=== PATIENT | female | born 1960 ===

== ENCOUNTER → 2022-08-05 14:18 | Outpatient (BNVA) | payer MEDICAID, SELFPAY | PROVIDERS: PCP Internal Medicine; Visit Provider Physician Assistant ==

== ENCOUNTER → 2022-08-26 11:09 | Outpatient (BNVA) | payer OTHER, SELFPAY | PROVIDERS: PCP Internal Medicine; Visit Provider Physician Assistant Surgical | DX: E66.01 Morbid (severe) obesity due to excess calories (principal); Z68.42 Body mass index [BMI] 45.0-49.9, adult | CPT/HCPCS: 99202 ==

== ENCOUNTER 2022-08-30 08:40 | Outpatient (REF) | payer OTHER, SELFPAY ==
--- NOTE | ~2022-08-30 | XR_ITS ---
EXAMINATION: XR CHEST CLINICAL INFORMATION: Obesity COMPARISON: None available. TECHNIQUE: 2 views of the chest were obtained. FINDINGS: No significant abnormality is noted involving the heart, lungs, mediastinum, bony thorax or soft tissues. Degenerative changes of the spine. XR/XR chest 2V IMPRESSION: Unremarkable examination.
--- NOTE | 2022-08-30 08:49 | ECG_ITS ---
Test Reason : E66.01 Morbid Obesity Blood Pressure : / mmHG Vent. Rate : 101 BPM Atrial Rate : 101 BPM P-R Int : 150 ms QRS Dur : 076 ms QT Int : 348 ms P-R-T Axes : 069 008 044 degrees QTc Int : 451 ms Sinus tachycardia Otherwise normal ECG No previous ECGs available Referred By: Maiklo Culp Electronically Signed By:BEHZAD LYONS MD
[2022-08-30 08:59] LABS: MANUAL DIFF FLAG NO
[2022-08-30 09:06] LABS: Basophils Percent Auto 0.5 % (0-2); Eosinophils Absolute Auto 0.1 X10*3/uL (0.0-0.4); Eosinophils Percent Auto 1.6 % (0-4); Hemoglobin 13.2 g/dl (12.0-16.0); Imm Gran Abs Auto 0.08 X10*3/uL (0.00-0.03); Lymphocytes Absolute Auto 1.4 X10*3/uL (1.2-4.9); Lymphocytes Percent Auto 18.2 % (20-40); Mean Corpuscular HGB Conc 32.2 g/dl (31.0-35.0); Mean Corpuscular Hemoglobin 30.7 pg (27.0-33.0); Mean Corpuscular Volume 95.3 fL (80.0-98.0); Mean Platelet Volume 10.5 fL (9.4-12.3); Monocytes Absolute Auto 0.5 X10*3/uL (0.1-1.2); Monocytes Percent Auto 6.2 % (2-11); Neutrophils Absolute Auto 5.6 x10*3/uL (2.0-8.3); Neutrophils Percent Auto 72.5 % (45-73); Platelet Count 273 X10*3/uL (160-400); Red Cell Distribution Width 12.6 % (11.0-16.0); White Blood Count 7.7 X10*3/uL (4.8-10.8)
[2022-08-30 09:15] LABS: Estimated Average Glucose 174 mg/dL; Hemoglobin A1c % 7.7 %
[2022-08-30 09:50] LABS: Alanine Aminotransferase 10 U/L (0-31); Alkaline Phosphatase 98 U/L (39-117); Anion Gap 16 (12-20); Aspartate Amino Transferase 12 U/L (5-31); Blood Urea Nitrogen 19 mg/dL (9-16); C Reactive Protein 2.23 mg/dL (< or = 0.50); Calcium 9.7 mg/dL (8.4-10.2); Carbon Dioxide 27 mmol/L (22-29); Chloride 102 mmol/L (96-108); Cholesterol 159 mg/dL; Estimated Glomerular Filt Rate 59; Glucose Random 220 mg/dL (60-115); HDL Cholesterol 72 mg/dL; Iron 61 mcg/dL (30-160); LDL Cholesterol Calculated 71 mg/dl; Percent Iron Saturation 24 % (15-50); Potassium 4.7 mmol/L (3.3-5.1); Sodium 140 mmol/L (135-145); Total Iron Binding Capacity 257 mcg/dL (228-428); Total Protein 7.6 g/dL (6.5-8.0); Triglycerides 81 mg/dL; Unsaturated Iron Binding 196 ug/dL
[2022-08-30 10:28] LABS: Ferritin 77 ng/mL (10-250); Folate 11.9 ng/mL (> or = 4.0); Vitamin B12 510 pg/mL (200-900)
[2022-08-30 10:50] LABS: Insulin 5 uU/mL (2-29)
[2022-08-31 16:13] LABS: Calcium (PTHI) 9.8 mg/dL (8.6-10.4); PTHI 50 pg/mL (16-77)
[2022-09-03 17:48] LABS: Zinc 81 mcg/dL (60-130)
[2022-09-04 09:44] LABS: Vitamin B1 <6 nmol/L (8-30)
[2022-09-06 17:48] LABS: Vitamin A 32 mcg/dL (38-98)
== END 2022-08-30 08:41 | disposition home or self-care (01) ==
LOC: HO.XRAY 08:40
PROVIDERS: Visit Provider Physician Assistant Surgical
DX: E66.01 Morbid (severe) obesity due to excess calories (principal); E11.9 Type 2 diabetes mellitus without complications; E78.00 Pure hypercholesterolemia, unspecified; I10 Essential (primary) hypertension
CPT/HCPCS: 36415; 71046; 80053; 80061; 82306; 82607; 82728; 82746; 83036; 83525; 83540; 83970; 84425; 84443; 84590; 84630; 85025; 86140; 93005

== ENCOUNTER → 2022-09-14 11:22 | Outpatient (BNVA) | payer OTHER, SELFPAY | PROVIDERS: PCP Internal Medicine; Visit Provider Physician Assistant Surgical | DX: E66.01 Morbid (severe) obesity due to excess calories (principal); Z11.0 Encounter for screening for intestinal infectious diseases; R09.02 Hypoxemia; Z68.41 Body mass index [BMI] 40.0-44.9, adult | CPT/HCPCS: 99211; 99212 ==

== ENCOUNTER 2022-09-14 18:15 | Outpatient (REF) | payer OTHER, SELFPAY ==
[2022-09-15 14:55] LABS: H Pylori Breath Test Negative (Negative)
== END 2022-09-14 18:16 | disposition home or self-care (01) ==
LOC: HO.LNP 18:15
PROVIDERS: Visit Provider Physician Assistant Surgical
DX: E66.01 Morbid (severe) obesity due to excess calories (principal); E11.9 Type 2 diabetes mellitus without complications; E78.00 Pure hypercholesterolemia, unspecified; I10 Essential (primary) hypertension
CPT/HCPCS: 83013

== ENCOUNTER → 2022-09-21 11:44 | Outpatient (BNVA) | payer OTHER, SELFPAY | PROVIDERS: PCP Internal Medicine; Visit Provider Dietitian, Registered | DX: E66.01 Morbid (severe) obesity due to excess calories (principal); Z68.41 Body mass index [BMI] 40.0-44.9, adult; Z71.3 Dietary counseling and surveillance | CPT/HCPCS: 97802 ==

== ENCOUNTER → 2022-10-05 09:42 | Outpatient (BNVA) | payer OTHER, SELFPAY | PROVIDERS: PCP Internal Medicine; Visit Provider Physician Assistant Surgical | DX: E66.01 Morbid (severe) obesity due to excess calories (principal); Z68.41 Body mass index [BMI] 40.0-44.9, adult | CPT/HCPCS: 99212 ==

== ENCOUNTER → 2022-10-07 12:25 | Outpatient (BNVA) | payer OTHER, SELFPAY | PROVIDERS: PCP Internal Medicine; Visit Provider Counselor Mental Health ==

== ENCOUNTER 2022-10-25 06:39 | Outpatient (REF) | payer OTHER, SELFPAY ==
--- NOTE | ~2022-10-25 | US_ITS ---
EXAMINATION: US COMPLETE ABDOMEN WITH LIVER ELASTOGRAPHY CLINICAL INFORMATION: Obesity. COMPARISON: None available. TECHNIQUE: Real-time imaging of the abdominal viscera. Noninvasive ultrasound liver fibrosis assessment is performed using Katlyn ElastPQ point quantification shear wave elastography (2D-SWE) with a C5-2 MHz transducer. Multiple elastography samples are obtained. FINDINGS: PANCREAS: Normal. The visualized pancreatic head and body are normal in appearance. The remainder of the pancreas is obscured from visualization by the overlying bowel gas. ABDOMINAL AORTA: The proximal, middle, and distal aortic segments are normal in caliber. INFERIOR VENA CAVA: Visualized portions are normal. LIVER: Normal. The liver demonstrates normal size, contour and echogenicity. No focal lesion or intrahepatic biliary duct dilatation. The right lobe measures 19.2 cm in length. The left lobe measures 13.7 cm in length. Portal flow is towards the liver (hepatopetal). Shear wave liver elastography median stiffness is 1.35 m/s (reference: normal median stiffness is 1.3 m/s or less). IQR/median stiffness to assess sampling precision is 0.15 (reference: good quality data set is IQR/median stiffness of 0.15 or less). GALLBLADDER: Normal. The gallbladder is physiologically distended without evidence of stones, sludge, polyps, wall thickening or pericholecystic fluid. COMMON BILE DUCT: Normal in caliber measuring 0.2 cm in diameter. RIGHT KIDNEY: Normal. No hydronephrosis. No renal calculi or focal parenchymal lesions. The kidney measures 12.1 cm in maximum dimension. LEFT KIDNEY: Normal. No hydronephrosis. No renal calculi or focal parenchymal lesions. The kidney measures 12.6 cm in maximum dimension. SPLEEN: Normal. The spleen measures 10.6 cm in maximum dimension. FREE FLUID: None. US/US abdomen comp w elastography IMPRESSION: Liver elastography: In the absence of other known clinical signs, measurements rule out compensated advanced chronic liver disease. If there are known clinical signs, further testing may be needed for confirmation. REFERENCE: Society of Radiologists in Ultrasound Liver Stiffness Thresholds (2020): LIVER STIFFNESS THRESHOLDS: *Liver Stiffness equal or less than 1.3 m/s: High probability of being normal. *Liver Stiffness less than 1.7 m/s: In the absence of other known clinical signs, rules out compensated advanced chronic liver disease. *Liver Stiffness 1.7-2.1 m/s: Suggestive of compensated advanced chronic liver disease but need further test for confirmation. *Liver Stiffness over 2.1 m/s: Rules in compensated advanced chronic liver disease. *Liver Stiffness over 2.4 m/s: Suggestive of clinically significant portal hypertension. QUALITY OF DATA SET: *IQR/Median value equal or less than 0.15 implies a quality data set. *IQR/Median value over 0.15 implies a poor quality data set. SIGNIFICANT CHANGE FROM PRIOR EXAM: Significant change if liver stiffness measurement is 10% or greater from prior exam. OTHER CONSIDERATIONS: The stage of liver fibrosis may be overestimated in the setting of acute hepatitis, liver inflammation, elevated liver function tests, hepatic vascular congestion, obstructive cholestasis, non-fasting state, and infiltrative diseases such as amyloidosis and lymphoma. In some patients with NAFLD, the liver stiffness thresholds for compensated advanced chronic liver disease may be lower. In causes other than viral hepatitis and NAFLD, liver stiffness thresholds are not well established.
--- NOTE | ~2022-10-25 | FL_ITS ---
PROCEDURE: XR FLUOROSCOPY UPPER GI WITH AIR CLINICAL INFORMATION: Morbid/severe obesity. COMPARISON: None available. TECHNIQUE: Routine upper GI air-contrast study was performed in upright and lying position. FINDINGS: Following oral administration of thick barium and effervescent granules there is normal propagation of bolus from the oral cavity through the pharynx, esophagus into stomach without any evidence of obstruction, narrowing or stricture. On placing patient supine and prone lying there is mild gastroesophageal reflux without hiatal hernia. The course, caliber and peristalsis of stomach, duodenal bulb and the sweep is normal. FLUOROSCOPY TIME: 1.5 minutes DOSE AREA PRODUCT: 35.047 uGy-m2 (microgray-meter squared) FL/FL upper GI w air IMPRESSION: Mild gastroesophageal reflux without hiatal hernia. Otherwise unremarkable upper GI air-contrast study.
== END 2022-10-25 06:40 | disposition home or self-care (01) ==
LOC: HO.US 06:39
PROVIDERS: PCP Internal Medicine; Visit Provider Physician Assistant Surgical
DX: E66.01 Morbid (severe) obesity due to excess calories (principal); E11.9 Type 2 diabetes mellitus without complications; E78.00 Pure hypercholesterolemia, unspecified; I10 Essential (primary) hypertension
CPT/HCPCS: 74246; 76705; 76981

== ENCOUNTER 2022-12-02 13:18 | Outpatient (AMB) | payer OTHER, SELFPAY ==
--- NOTE | 2022-12-02 13:30 | MHC.OFFVISWM ---
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 Required: No Allergies Sulfa (Sulfonamide Antibiotics) Allergy (Mild, Verified 12/02/22 13:34) Hives Medication List - Last Reconciled 12/02/22 by MELVI Aldana acetaminophen 650 mg PO TID PRN albuterol sulfate 90 mcg/actuation (Ventolin HFA) 2 puffs inhalation QID amitriptyline 25 mg PO BEDTIME aripiprazole 2 mg PO DAILY btgcrpcqu-rqftwwuz-smyhclh ala 30-120-15 mg (Biktarvy) tabs PO budesonide-formoterol 160-4.5 mcg/actuation (Symbicort) 2 puffs inhalation BID cholecalciferol (vitamin D3) 125 mcg PO DAILY dapagliflozin propanediol 10 mg PO DAILY dulaglutide (Trulicity) 1.5 mg subcut QWEEK dulaglutide (Trulicity) mg subcut duloxetine 60 mg PO DAILY fexofenadine 60 mg PO DAILY flash glucose scanning reader (FreeStyle Juanjose 2 [place]) As directed flash glucose sensor (FreeStyle Juanjose 2 Sensor kit) As directed fluticasone propionate 50 mcg/actuation (Flonase Allergy Relief) 2 sprays intranasal DAILY gabapentin 300 mg PO TID insulin glargine (Lantus Solostar U-100 Insulin) 25 units subcut QAM insulin lispro (Humalog KwikPen (U-100) Insulin) 1 sliding scale dose subcut USEASDIRECTD lidocaine 5% 1 appl topical TID PRN metformin 500 mg PO BID metoprolol succinate ER 100 mg PO DAILY oxybutynin chloride ER 15 mg PO DAILY pravastatin 20 mg PO DAILY prazosin 5 mg PO BEDTIME thiamine HCl (vitamin B1) 100 mg PO DAILY 90 days trazodone 50 mg PO BEDTIME PRN valsartan 160 mg PO DAILY vitamin A palmitate 3,000 mcg PO DAILY 90 days HPI HPI Comments History of Present Illness Details The patient is a pleasant 62 year old female who returns to the clinic for pre-operative surgical weight loss management. They were last seen in the office on 10/05/22, recorded weight at that time was 242.6 pounds, with a BMI of 43. Today's weight is 245 pounds and BMI is 43.4. There has been a weight loss of 17.4 pounds since initiating the surgical weight loss program on 08/26/22 with a total body weight loss of 6.6 %. Pre op work up completed as follows: SWL classes:? 08/06 BH appts: cleared-10/07/22 ? ? RD appts: cleared-09/21/22 Labs: 08/30/22-low A,D,B1, HgbA1c:7.7 H. pylori: 09/14/22 CXR: 08/30/22-nad EK08/30/22-sinus tachycardia ABD U/S: 10/25/22-fatty liver UGI: 10/25/22-mild GERD The patient reports she had the loss of her brother and during 9 days of prayers, food is part of the culture and she tried to do her best but ultimately ate things off the meal plan. Restarted the meal plan this week. Current meal plan includes: 3 Orgain shakes ([employer], [employer], [employer]) First shake (2 scoops in 8 oz low fat unsweetened almond milk, may add ice if you wish) at 7am-9am Second shake (1 scoops in 8 oz low fat unsweetened almond milk, may add ice if you wish) at 10am-12pm meal at 12pm (8 forks of protein and 8 forks of salad/vegetables). 1 protein bar (Zone Macro bars at [employer], [employer], or [employer], [employer]) at 2pm-4pm. Another shake with 1 scoop in 8 oz unsweetened almond milk at 7pm-9pm. Drinking 64-80 oz of water Current exercise plan includes: weight loss videos at home, 3 x per week, walking 4 days per week on the [place] in the park, not tracking calories, states she walks for 3 x around the track and no longer has to stop 3/[address] [facility] Surgical History Hx of appendectomy Hx of cataract surgery Hx of tonsillectomy Hx of tracheostomy Family History Mother Diabetes Father No problems noted. Brother No problems noted. Brother No problems noted. Sister Thyroid disease Sister Heart disease Sister No problems noted. Sister No problems noted. Sister No problems noted. Daughter No problems noted. Daughter No problems noted. Daughter No problems noted. Son Thyroid disease Son No problems noted. Son No problems noted. Social History Alcohol intake: never Patient Tobacco Use Status: Never used Tobacco Physical Exam Vital Signs: Last Vital Signs Temp 97.6 F 12/02/22 13:37 Pulse 96 12/02/22 13:37 BP 134/66 12/02/22 13:37 Pulse Ox 96 12/02/22 13:37 Oxygen Delivery Method Room Air 12/02/22 13:37 BMI result Body Mass Index 43.4 Const General: healthy appearing and no acute distress Resp Effort & Inspection: normal respiratory effort Auscultation: clear to auscultation bilaterally Cardio Rate: regular rate Rhythm: regular rhythm GI Auscultation: normal bowel sounds Extrem General: Yes normal to inspection Assessment & Plan Assessment & Plan (1) Morbid obesity: Code(s): E66.01 - Morbid (severe) obesity due to excess calories Plan: Due to in the family and 9 days of prayers and food, off track, now back on track and able to recount meal plan perfectly Encouraged to increase exercise as much as she can and to improve by 2-5 minutes daily RTC w Dr Royal 5 weeks. Coding Level of Care Code Est Pt Level 3 (42884) Diagnoses Morbid obesity E66.01
[2022-12-02 13:37] VITALS: BP 134/66; PULSE 96; TEMP 36.4; O2SAT 96; BMI 43.4
== END 2022-12-02 14:14 | disposition home or self-care (01) ==
PROVIDERS: PCP Internal Medicine; Visit Provider Physician Assistant Surgical
DX: E66.01 Morbid (severe) obesity due to excess calories (principal); Z68.41 Body mass index [BMI] 40.0-44.9, adult
CPT/HCPCS: 99213

== ENCOUNTER → 2022-12-02 13:18 | Outpatient (BNVA) | payer OTHER, SELFPAY | PROVIDERS: PCP Internal Medicine; Visit Provider Physician Assistant Surgical | DX: E66.01 Morbid (severe) obesity due to excess calories (principal); Z68.41 Body mass index [BMI] 40.0-44.9, adult | CPT/HCPCS: 99212 ==

== ENCOUNTER → 2023-06-30 13:02 | Outpatient (BNVA) | payer OTHER, SELFPAY | PROVIDERS: PCP Internal Medicine; Visit Provider Physician Assistant Surgical ==

== ENCOUNTER 2023-07-04 11:00 | Outpatient (AMB) | payer OTHER, SELFPAY ==
--- NOTE | 2023-07-04 11:21 | A.OFFVIS_ITS ---
Intake VS Expanded 07/04/23 11:56 Height 5 ft 3 in Weight 245 lb BMI 43.4 Intake Visit Reasons: TV Re-Est SWL BMI 43.5 *SEE COMMENTS* Allergies Sulfa (Sulfonamide Antibiotics) Allergy (Mild, Verified 07/04/23 11:21) Hives Medication List - Last Reconciled 07/04/23 by Moses Carrasco MD acetaminophen 650 mg PO TID PRN albuterol sulfate 90 mcg/actuation (Ventolin HFA) 2 puffs inhalation QID amitriptyline 25 mg PO BEDTIME aripiprazole 2 mg PO DAILY pymvapuel-vmvwavpp-egzddwd ala 30-120-15 mg (Biktarvy) tabs PO budesonide-formoterol 160-4.5 mcg/actuation (Symbicort) 2 puffs inhalation BID cholecalciferol (vitamin D3) 125 mcg PO DAILY dapagliflozin propanediol 10 mg PO DAILY dulaglutide (Trulicity) 1.5 mg subcut QWEEK dulaglutide (Trulicity) mg subcut duloxetine 60 mg PO DAILY fexofenadine 60 mg PO DAILY flash glucose scanning reader (24/7 CardStyle Juanjose 2 [place]) As directed flash glucose sensor (FreeStyle Juanjose 2 Sensor kit) As directed fluticasone propionate 50 mcg/actuation (Flonase Allergy Relief) 2 sprays intranasal DAILY gabapentin 300 mg PO TID insulin glargine (Lantus Solostar U-100 Insulin) 25 units subcut QAM insulin lispro (Humalog KwikPen (U-100) Insulin) 1 sliding scale dose subcut USEASDIRECTD lidocaine 5% 1 appl topical TID PRN metformin 500 mg PO BID metoprolol succinate ER 100 mg PO DAILY oxybutynin chloride ER 15 mg PO DAILY pravastatin 20 mg PO DAILY prazosin 5 mg PO BEDTIME thiamine HCl (vitamin B1) 100 mg PO DAILY 90 days trazodone 50 mg PO BEDTIME PRN valsartan 160 mg PO DAILY vitamin A palmitate 3,000 mcg PO DAILY 90 days HPI TV Re-Est SWL BMI 43.5 *SEE COMMENTS* HPI Details Start time: 11.15am, End time: 12.02pm I spent 30 minutes talking to the patient and 17 minutes to review previous records and prepare my note for a total time of 47 minutes spent for this patient. HPI Comments History of Present Illness Details The patient has lost 16lbs or 6.5% TBWL Wakes up: 6am, sleeps: 9pm Nutritional plan: 3 Orgain shakes ([employer], [employer], [employer]) First shake (2 scoops in 8 oz low fat unsweetened almond milk, may add ice if you wish) at 7am-9am Second shake (1 scoops in 8 oz low fat unsweetened almond milk, may add ice if you wish) at 10am-12pm meal at 12pm (8 forks of protein and 8 forks of salad/vegetables). 1 protein bar (Zone Macro bars at [employer] , [facility], or [employer], [employer]) at 2pm-4pm. Another shake with 1 scoop in 8 oz unsweetened almond milk at 7pm-9pm. Exercise: walks outside and used a mini bike at home daily PFS Surgical History Hx of appendectomy Hx of cataract surgery Hx of tonsillectomy Hx of tracheostomy Family History Mother Diabetes Father No problems noted. Brother No problems noted. Brother No problems noted. Sister Thyroid disease Sister Heart disease Sister No problems noted. Sister No problems noted. Sister No problems noted. Daughter No problems noted. Daughter No problems noted. Daughter No problems noted. Son Thyroid disease Son No problems noted. Son No problems noted. Social History Alcohol intake: never Patient Tobacco Use Status: Never used Tobacco Assessment & Plan Assessment & Plan (1) Morbid obesity: Code(s): E66.01 - Morbid (severe) obesity due to excess calories Plan: 1.? Plan for lap sleeve gastrectomy. If diaphragmatic or ventral hernias are present at time of surgery, these will be repaired laparoscopically as well. 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 I emphasized the importance of close follow-up, adherence to instructions and good communication. The patient has completed all preoperative tests, has lost substantial weight and is cleared for surgery. 2. Nutritional counseling. Start with 2 ORGAIN protein shakes (ONE scoop EACH in 8oz low fat unsweetened almond milk each) at 7am-9am and 10am-12pm, 2 Zone Perfect protein bars at 1pm-3pm and 4pm-6pm and dinner at 7pm (8 forks of protein and 8 forks of salad/vegetables). If hungry after dinner, please do HALF Zone Perfect protein bar at 8pm-9pm. So you do 2 protein shakes, 2-2.5 protein bars and one meal per day. Meal to include lean meat (beef, fish, pork, turkey, chicken), or yakut yogurt, or egg whites, or beans with a salad with olive oil and fruits (berries, pears, apples, kiwi). Avoid salt, breads, potatoes, rice, pasta, desserts. ?3. Each shake would be drunk slowly, like coffee in a period of 2 hours. ?4. Cut each bar in 4 pieces and eat each piece in 30min ?to make each bar last 2 hours. ?5. I emphasized the importance of measuring accurately the food portion and measure it when serving the food in plate ?6. The meal portions include 8 full-size forks of meat and 8 full-size forks of salad. You always eat the meat portion but you can replace up to 4 forks for salad/vegetables with rice, potatoes or pasta, or a fruit ?if you like. The less you do it the better weight loss will be. ?7. One full-size fork is what it can be scooped on the fork without falling aside and not what can be bit with the fork. Use regular forks like those you find in a typical restaurant. ?8.? Please send me weight measurements as soon as possible and then once a week. Always include your diet and exercise plan. ?9. Start stationary bike at a resistance level of 4.0 Increase level by 1.0 every 3 min to a max level of 10.0. Stay at this level for 3 min and then return to level 4.0 and repeat same steps until 300 calories are burned. Velocity target is 12mph. Goal is to burn 2000 calories per week on exercise 10. The best choice would be to purchase a stationary bike at home that can track calories. Let me know if you do so I can give you an exercise plan. ?11.?Goal is to lose at least 1.5-2lbs per week 12. Please follow the diet plan exactly without any change. If you don't like something about the plan or you feel hungry you need to communicate with me so I can help you revise the plan. You should not change the plan yourself. 13. Please check your blood sugars daily and let me know if you have any blood sugar below 100 14. Check your blood pressure daily in the morning. Please let me know if you have any blood pressure below 120/70. Telehealth Telehealth Location of provider rendering services: practice address Location of patient: address on file Patient Identification confirmed using: Name, : Yes Telehealth method: voice only Patient verbally consented to treatment: Yes Patient verbally consented to billing insurance company: Yes Patient informed of any privacy concerns related to visit: Yes Minutes spent on Phone/Video with Pt.: 47 Coding Level of Care Code Tele Est Pt Level 5 (92741) Diagnoses Morbid obesity E66.01 Time Spent (min) 47
[2023-07-04 11:56] VITALS: BMI 43.4
== END 2023-07-04 12:03 | disposition home or self-care (01) ==
LOC: HO.HBS 11:00
PROVIDERS: PCP Internal Medicine; Visit Provider Surgery
DX: E66.01 Morbid (severe) obesity due to excess calories (principal); Z68.41 Body mass index [BMI] 40.0-44.9, adult
CPT/HCPCS: 99215

== ENCOUNTER → 2023-07-04 11:00 | Outpatient (BNVA) | payer OTHER, SELFPAY | PROVIDERS: PCP Internal Medicine; Visit Provider Surgery ==

== ENCOUNTER 2023-07-24 08:20 | Outpatient (AMB) | payer OTHER, SELFPAY ==
--- NOTE | 2023-07-24 10:18 | A.OFFVIS_ITS ---
Intake VS Expanded 07/24/23 10:28 Height 5 ft 3 in Weight 239 lb 4 oz BMI 42.4 Body Fat % 56.4 Body Fat Mass 135 Fat Free Mass 104.3 Body Water % 32 Body Water Mass 76.6 Basal Metabolic Rate/Score 2,438 Intake Visit Reasons: TV Pre Op LSG 08/01/23 Allergies Sulfa (Sulfonamide Antibiotics) Allergy (Mild, Verified 07/24/23 10:19) Hives Medication List - Last Reconciled 07/24/23 by Moses Carrasco MD acetaminophen 650 mg PO TID PRN albuterol sulfate 90 mcg/actuation (Ventolin HFA) 2 puffs inhalation QID amitriptyline 25 mg PO BEDTIME aripiprazole 2 mg PO DAILY evnquqcne-mcigpioc-zugfmbz ala 30-120-15 mg (Biktarvy) tabs PO budesonide-formoterol 160-4.5 mcg/actuation (Symbicort) 2 puffs inhalation BID cholecalciferol (vitamin D3) 125 mcg PO DAILY dulaglutide (Trulicity) mg subcut duloxetine 60 mg PO DAILY fexofenadine 60 mg PO DAILY flash glucose scanning reader (Click[employer] ServicesStyle Juanjose 2 [place]) As directed flash glucose sensor (FreeStyle Juanjose 2 Sensor kit) As directed fluticasone propionate 50 mcg/actuation (Flonase Allergy Relief) 2 sprays intranasal DAILY gabapentin 300 mg PO TID insulin glargine (Lantus Solostar U-100 Insulin) 25 units subcut QAM insulin lispro (Humalog KwikPen (U-100) Insulin) 1 sliding scale dose subcut USEASDIRECTD lidocaine 5% 1 appl topical TID PRN metformin 500 mg PO BID metoprolol succinate ER 100 mg PO DAILY ondansetron 4 mg PO Q12H oxybutynin chloride ER 15 mg PO DAILY pantoprazole 40 mg PO DAILY polyethylene glycol 3350 (Miralax) 17 grams PO DAILY pravastatin 20 mg PO DAILY prazosin 5 mg PO BEDTIME sucralfate 10 mL PO BID thiamine HCl (vitamin B1) 100 mg PO DAILY 90 days trazodone 50 mg PO BEDTIME PRN valsartan 160 mg PO DAILY vitamin A palmitate 3,000 mcg PO DAILY 90 days HPI TV Pre Op LSG 08/01/23 HPI Details Start time: 10.06am, End time: 10.36am ?I spent 25 minutes speaking with the patient on the phone plus an additional 5 minutes reviewing and updating records for a total of 30 minutes HPI Comments 2 History of Present Illness Details Overall weight loss: 22lbs, or 8.42% TBWL Is on the preoperative liquid diet Exercise: home exercises [facility] Surgical History Hx of appendectomy Hx of cataract surgery Hx of tonsillectomy Hx of tracheostomy Family History Mother Diabetes Father No problems noted. Brother No problems noted. Brother No problems noted. Sister Thyroid disease Sister Heart disease Sister No problems noted. Sister No problems noted. Sister No problems noted. Daughter No problems noted. Daughter No problems noted. Daughter No problems noted. Son Thyroid disease Son No problems noted. Son No problems noted. Social History Alcohol intake: never Patient Tobacco Use Status: Never used Tobacco Assessment & Plan Assessment & Plan (1) Morbid obesity: Code(s): E66.01 - Morbid (severe) obesity due to excess calories Plan: 1. Plan for lap sleeve gastrectomy including upper GI endoscopy. All tests has been completed and reviewed and the patient is cleared for the surgery.? If diaphragmatic or ventral hernias are present at time of surgery, these will be repaired laparoscopically as well. Risks and complications were discussed in detail including possible conversion to an open procedure, anastomotic leak, bleeding requiring transfusion, small bowel obstruction, , DVT and pulmonary embolism, cardiac, or pulmonary complications, as director long term care complications such as anastomotic ulcer, insufficient weight loss and vitamin deficiencies. I emphasized the importance of close follow-up, adherence to instructions and good communication. So far she has proven to be an excellent communicator and very compliant with all our directions accomplishing a great weight loss. I believe that she is an excellent candidate and she is ready. 2. Preop prescriptions were provided and explained the purpose of each one. Need to be purchased preop. Start Pantoprazole now as you get it from the pharmacy, 1 pill per day. Sucralfate and Zofran are for after surgery as needed. 3. Bowel prep: please do 7 packets ?of Miralax mixing each one with a an 8oz glass of water, crystal light, gatorade zero, or propel ?on 07/30/23 and the same amount on 07/31/23. The Miralax you begin with one packet at a time in 8oz water or crystal light, gatorade zero, or propel ?as early in the day as you can and you do them back to back until you finish them. Continue the protein shakes during? the bowel prep. 4. Needs to purchase 1oz medicine cups . 5. Needs to purchase Children's liquid Tylenol for postop pain control. 6. Avoid aspirin, motrin, Advil, Aleve, Ibuprofen, Naproxyn. Tylenol is OK. 7. She needs to purchase the Celebrate 4:1 protein shakes from the hospital's gift shop. 8. Will do basic preop blood work-up any day between Monday07/25/23 and Monday07/28/23 fasting for 12 hours and is scheduled to see the Anesthesiologist prior to the day of surgery. 9. Measure your blood pressure daily in the morning. If the blood pressure is: Below 120/70: do not take the Valsartan and Metoprolol 121-71 to 130/80: take half pill of the Valsartan and Metoprolol Over 131/81: take one pill of the Valsartan and Metoprolol 10. Importance of adherence to postop folllow-up and recommendations was underscored and she understands that. 11. Stop food and bars and continue with 3 Orgain protein shakes (ONE scoop EACH in 8oz almond milk) at 7am-9am, 10am-12pm and ?1pm-3pm and TWO more Orgain protein shakes with TWO scoops in 8oz of almond milk at 4pm-6pm and 7pm-9pm 12. No soups, broths or V8 13. The patient's?medical?history has been reviewed and they are considered low risk for post op DVT and therefore DVT prophylaxis is not considered necessary. Travel after surgery was reviewed. The patient has not disclosed any travel plans during the first 30 days after surgery and they have been advised that within the first 30 days after surgery any bus, plane, train or car travel over 2 hours in duration is contraindicated due to the possibility of developing blood clots from immobility. Any travel, needs to include periods of ambulation of 10 minutes in duration every 2 hours.? Patient was instructed to discuss any plans for travel during this period with their bariatric surgeon.? 14. Please take at the day of surgery the following medications: Only the Lisinopril with the hydrochlorothiazide based on the parameters described above 15. Stop any control pills and don't use them for one month after surgery 16. Absolutely no smoking or vaping, or marijuana until the surgery and for at least the first 4 weeks. Only nicotine patches are allowed. 17. Send me weight measurements on Monday07/28/23 and then again on Monday08/01/23 the day of surgery before you go to the hospital. 18. Avoid any steroids by mouth for any reason. Let me know if someone prescribes them to you 19. These instructions supersede anything else you read in the handbook, anything you watched in videos or classes or you were told by any other provider. If there is any conflict, you follow the above instructions and nothing else. 20. Use of CPAP daily and bring it to the hospital with the face mask 21. Check your blood sugar daily and let me kknow if they drop below 100 Orders: Orders Comprehensive Met. Panel Today E11.9 - Type 2 diabetes mellitus without complications, E66.01 - Morbid (severe) obesity due to excess calories, E78.00 - Pure hypercholesterolemia, unspecified, I10 - Essential (primary) hypertension Prothrombin Time INR Today E11.9 - Type 2 diabetes mellitus without complications, E66.01 - Morbid (severe) obesity due to excess calories, E78.00 - Pure hypercholesterolemia, unspecified, I10 - Essential (primary) hypertension Type and Screen Today E11.9 - Type 2 diabetes mellitus without complications, E66.01 - Morbid (severe) obesity due to excess calories, E78.00 - Pure hypercholesterolemia, unspecified, I10 - Essential (primary) hypertension Partial Thromboplastin Time Today E11.9 - Type 2 diabetes mellitus without complications, E66.01 - Morbid (severe) obesity due to excess calories, E78.00 - Pure hypercholesterolemia, unspecified, I10 - Essential (primary) hypertension C Reactive Protein Today E11.9 - Type 2 diabetes mellitus without complications, E66.01 - Morbid (severe) obesity due to excess calories, E78.00 - Pure hypercholesterolemia, unspecified, I10 - Essential (primary) hypertension Hemoglobin A1c Today E11.9 - Type 2 diabetes mellitus without complications, E66.01 - Morbid (severe) obesity due to excess calories, E78.00 - Pure hypercholesterolemia, unspecified, I10 - Essential (primary) hypertension Complete Blood Count Auto Diff Today E11.9 - Type 2 diabetes mellitus without complications, E66.01 - Morbid (severe) obesity due to excess calories, E78.00 - Pure hypercholesterolemia, unspecified, I10 - Essential (primary) hypertension Insulin Today E11.9 - Type 2 diabetes mellitus without complications, E66.01 - Morbid (severe) obesity due to excess calories, E78.00 - Pure hypercholesterolemia, unspecified, I10 - Essential (primary) hypertension TSH reflex Free T4 Today E11.9 - Type 2 diabetes mellitus without complications, E66.01 - Morbid (severe) obesity due to excess calories, E78.00 - Pure hypercholesterolemia, unspecified, I10 - Essential (primary) hypertension Lipid Panel Today E11.9 - Type 2 diabetes mellitus without complications, E66.01 - Morbid (severe) obesity due to excess calories, E78.00 - Pure hypercholesterolemia, unspecified, I10 - Essential (primary) hypertension Medications: New pantoprazole 40 mg PO DAILY 90 tabs 0RF K21.9 - Gastro-esophageal reflux disease without esophagitis sucralfate 10 mL PO BID 600 mL 2RF K21.9 - Gastro-esophageal reflux disease without esophagitis polyethylene glycol 3350 (Miralax) Mix each packet with 8oz of water, Crystal light, or Gatorade zero, or Propel and do 7 packets on 07/30/23 and another 7 packets on 07/31/23 17 grams PO DAILY 14 ea 0RF Z01.818 - Encounter for other preprocedural examination ondansetron Only take one every 12 hours as needed if you have nausea 4 mg PO Q12H 20 tabs 0RF nausea and vomiting R11.0 - Nausea Telehealth Telehealth Location of provider rendering services: practice address Location of patient: address on file Patient Identification confirmed using: Name, : Yes Telehealth method: voice only Patient verbally consented to treatment: Yes Patient verbally consented to billing insurance company: Yes Patient informed of any privacy concerns related to visit: Yes Minutes spent on Phone/Video with Pt.: 30 Coding Level of Care Code Tele Est Pt Level 4 (49844) Diagnoses Morbid obesity E66.01 Time Spent (min) 30
[2023-07-24 10:28] VITALS: BMI 42.4
== END 2023-07-24 10:37 | disposition home or self-care (01) ==
LOC: HO.HBS 08:20
PROVIDERS: PCP Internal Medicine; Visit Provider Surgery
DX: E66.01 Morbid (severe) obesity due to excess calories (principal)
CPT/HCPCS: 99214

== ENCOUNTER → 2023-07-24 08:20 | Outpatient (BNVA) | payer OTHER, SELFPAY | PROVIDERS: PCP Internal Medicine; Visit Provider Surgery ==

== ENCOUNTER → 2023-07-25 11:00 | Outpatient (BNVA) | payer OTHER, SELFPAY | PROVIDERS: PCP Internal Medicine; Visit Provider Surgery ==

== ENCOUNTER 2023-08-01 10:29 | Inpatient (IN) | payer OTHER, SELFPAY ==
[2023-07-25 10:55] LABS: MANUAL DIFF FLAG NO
[2023-07-25 12:29] LABS: INTERNATIONAL NORM RATIO 0.9 (0.9-1.1); Prothrombin Time 11.1 SEC (11.1-13.3)
[2023-07-25 12:31] LABS: Partial Thromboplastin Time 31.4 SEC (26.0-36.8)
[2023-07-25 12:34] LABS: Estimated Average Glucose 157 mg/dL; Hemoglobin A1c % 7.1 % (<6.0)
[2023-07-25 12:41] LABS: Basophils Percent Auto 0.4 % (0-2); Eosinophils Absolute Auto 0.2 X10*3/uL (0.0-0.4); Eosinophils Percent Auto 2.9 % (0-4); Hematocrit 42.2 % (37.0-47.0); Hemoglobin 14.1 g/dl (12.0-16.0); Imm Gran Abs Auto 0.03 X10*3/uL (0.00-0.03); Imm Gran Pct Auto 0.4 % (0.0-0.4); Lymphocytes Absolute Auto 1.3 X10*3/uL (1.2-4.9); Lymphocytes Percent Auto 17.3 % (20-40); Mean Corpuscular HGB Conc 33.4 g/dl (31.0-35.0); Mean Corpuscular Hemoglobin 31.1 pg (27.0-33.0); Monocytes Absolute Auto 0.5 X10*3/uL (0.1-1.2); Monocytes Percent Auto 6.8 % (2-11); Neutrophils Absolute Auto 5.5 x10*3/uL (2.0-8.3); Neutrophils Percent Auto 72.2 % (45-73); Platelet Count 283 X10*3/uL (160-400); Red Blood Count 4.54 X10*6/uL (4.20-5.50); Red Cell Distribution Width 13.2 % (11.0-16.0); White Blood Count 7.6 X10*3/uL (4.8-10.8)
[2023-07-25 13:23] LABS: Alanine Aminotransferase 12 U/L (0-31); Alkaline Phosphatase 72 U/L (39-117); Anion Gap 18 (12-20); Aspartate Amino Transferase 16 U/L (5-31); Bilirubin Total 0.9 mg/dL (0.0-1.0); Blood Urea Nitrogen 19 mg/dL (9-16); C Reactive Protein 1.28 mg/dL (< or = 0.50); Calcium 9.9 mg/dL (8.4-10.2); Carbon Dioxide 27 mmol/L (22-29); Chloride 96 mmol/L (96-108); Cholesterol 120 mg/dL (<200); Estimated Glomerular Filt Rate > 60; Glucose Random 105 mg/dL (60-115); HDL Cholesterol 55 mg/dL (>40); Insulin 4 uU/mL (2-29); LDL Cholesterol Calculated 46 mg/dL (<100); Sodium 137 mmol/L (135-145); TSH reflex Free T4 1.22 uIU/mL (0.32-4.0); Total Protein 7.8 g/dL (6.5-8.0); Triglycerides 95 mg/dL (<150)
[2023-07-26 11:47] VITALS: BMI 41.9
--- NOTE | 2023-07-28 14:15 | HO.ANESPROP2 ---
Documented by User: Alexandra Bradley NP 07/31/23 14:14 HPI - Anesthesia Eval Consult details Narrative: 63yo F for Gastrectomy Sleeve-EGD, possible diaphragmatic hernia, possible ventral hernia, possible open Hx of trach 2003 Anesthesia Pre-Procedure Meds Is the patient on any of the following meds?: Any other SGL-1 drugs or drugs that delay gastric emptying (Farxiga) PMFSH Active Problems Active Problems: All Active Problems (Updated 07/26/23 @ 10:59 by Aide Sapp RN) Hypoxia (Acute) KRYSTIAN (obstructive sleep apnea) (Acute) Depression (Acute) Hypercholesterolemia (Acute) HIV (human immunodeficiency virus infection) (Acute) Diabetes (Acute) HTN (hypertension) (Acute) Morbid obesity (Acute) Past Medical History Medical History GERD (gastroesophageal reflux disease) Stress incontinence Insulin dependent type 2 diabetes mellitus Neuropathy History of transfusion of packed red blood cells Arthritis Concussion Sleep apnea Asthma SOB (shortness of breath) Family History Family History Mother Diabetes Father No problems noted. Brother No problems noted. Brother No problems noted. Sister Thyroid disease Sister Heart disease Sister No problems noted. Sister No problems noted. Sister No problems noted. Daughter No problems noted. Daughter No problems noted. Daughter No problems noted. Son Thyroid disease Son No problems noted. Son No problems noted. 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 If so, by whom?: No Advance Directives: No Advance Directives Information Provided: No Advance Directives on File: No Recently lost weight without trying: No Eating poorly because of decreased appetite: No Nutrition Risks: No Nutritional Risk Patient : No : No Poor oral hygiene: Yes (broken upper molar on both sides) Meds Allergies Allergy/AdvReac Type Severity Reaction Status Date / Time Sulfa (Sulfonamide Allergy Mild Hives Verified 08/01/23 10:50 Antibiotics) metoprolol Allergy Rash Verified 08/01/23 10:50 Home Medications Medication Instructions Recorded Confirmed Last Taken Type aripiprazole 2 mg tablet 2 mg PO DAILY 08/05/22 08/01/23 08/01/23 History bictegravir 30 mg-emtricitabine 1 tab PO DAILY 08/05/22 08/01/23 08/01/23 History 120 mg-tenofovir alafenam 15 mg tablet (Biktarvy) budesonide-formoterol HFA 160 2 puff inhalation BID 08/05/22 07/26/23 Unknown History mcg-4.5 mcg/actuation aerosol inhaler (Symbicort) duloxetine 60 mg capsule,delayed 60 mg PO DAILY 08/05/22 08/01/23 08/01/23 History release fexofenadine 60 mg tablet 60 mg PO DAILY 08/05/22 08/01/23 07/31/23 History flash glucose scanning reader 08/05/22 07/24/23 Unknown History (FreeStyle Juanjose 2 [place]) flash glucose sensor (FreeStyle 08/05/22 07/24/23 Unknown History Juanjose 2 Sensor kit) pravastatin 20 mg tablet 20 mg PO BEDTIME 08/05/22 08/01/23 07/31/23 History trazodone 50 mg tablet 50 mg PO BEDTIME PRN Insomnia 08/05/22 07/26/23 Unknown History albuterol sulfate 90 mcg/actuation 2 puff inhalation QID PRN 07/26/23 07/26/23 Unknown History aerosol inhaler (Ventolin HFA) Shortness Of Breath Or Wheezing fluticasone propionate 50 2 spray intranasal DAILY 07/26/23 07/26/23 Unknown History mcg/actuation nasal spray,suspension cetirizine 10 mg tablet (Zyrtec) 10 mg PO DAILY 07/27/23 07/27/23 Unknown History dapagliflozin propanediol 10 mg 10 mg PO DAILY 07/27/23 07/27/23 Unknown History tablet duloxetine 30 mg capsule,delayed 30 mg PO DAILY 07/27/23 08/01/23 08/01/23 History release sprinkle gabapentin 300 mg capsule 300 mg PO DAILY 07/27/23 08/01/23 07/31/23 History gabapentin 600 mg tablet 600 mg PO BEDTIME 07/27/23 08/01/23 07/31/23 History hydroxyzine HCl 50 mg tablet 50 mg PO BEDTIME 07/27/23 08/01/23 07/31/23 History oxybutynin chloride 15 mg 15 mg PO DAILY 07/27/23 08/01/23 08/01/23 History tablet,extended release 24 hr Exam Height,Weight and Vital Signs: Height 5 ft 3 in Weight 107.32 kg Pertinent Lab Results Pertinent Lab Results: Laboratory Tests 07/25/23 07/25/23 10:45 10:53 WBC 7.6 RBC 4.54 Hgb 14.1 Hct 42.2 MCV 93.0 MCH 31.1 MCHC 33.4 RDW 13.2 Plt Count 283 MPV 11.0 Immature Gran % (Auto) 0.4 Neut % (Auto) 72.2 Lymph % (Auto) 17.3 L [place] % (Auto) 6.8 Eos % (Auto) 2.9 Baso % (Auto) 0.4 Lymph # (Auto) 1.3 [place] # (Auto) 0.5 Eos # (Auto) 0.2 Baso # (Auto) 0.0 Abs Immat Gran (auto) 0.03 Absolute Neuts (auto) 5.5 Absolute Nucleated RBC 0.000 Nucleated RBC % (auto) 0.0 PT 11.1 INR 0.9 APTT 31.4 Sodium 137 Potassium 4.0 Chloride 96 Carbon Dioxide 27 Anion Gap 18 BUN 19 H Creatinine 0.86 Estim Creat Clear Calc TNP Estimated GFR > 60 Random Glucose 105 Estimat Average Glucose 157 Hemoglobin A1c % 7.1 H Insulin Level 4 Calcium 9.9 Total Bilirubin 0.9 AST 16 ALT 12 Alkaline Phosphatase 72 C-Reactive Protein 1.28 H Total Protein 7.8 Albumin 4.0 Triglycerides 95 Cholesterol 120 LDL Cholesterol, Calc 46 HDL Cholesterol 55 TSH 1.22 Blood Type A Positive Antibody Screen NEGATIVE Assessment and Plan Assessment Anesthesia Assessment: Chart Reviewed Documented by User: Philip Jackson MD 08/01/23 13:20 HPI - Anesthesia Eval Anesthesia Pre-Procedure Meds If Yes to any meds - educate patient: Pt education - increased risk of aspiration and Pt education - possibility of cancelled proc at provider's discretion PMFSH Past Medical History Medical History GERD (gastroesophageal reflux disease) Stress incontinence Insulin dependent type 2 diabetes mellitus Neuropathy History of transfusion of packed red blood cells Arthritis Concussion Sleep apnea Asthma SOB (shortness of breath) Family History Family History Mother Diabetes Father No problems noted. Brother No problems noted. Brother No problems noted. Sister Thyroid disease Sister Heart disease Sister No problems noted. Sister No problems noted. Sister No problems noted. Daughter No problems noted. Daughter No problems noted. Daughter No problems noted. Son Thyroid disease Son No problems noted. Son No problems noted. 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 If so, by whom?: No Advance Directives: No Advance Directives Information Provided: No Advance Directives on File: No Recently lost weight without trying: No Eating poorly because of decreased appetite: No Nutrition Risks: No Nutritional Risk Patient : No : No Poor oral hygiene: Yes (broken upper molar on both sides) Meds Allergies Allergy/AdvReac Type Severity Reaction Status Date / Time Sulfa (Sulfonamide Allergy Mild Hives Verified 08/01/23 10:50 Antibiotics) metoprolol Allergy Rash Verified 08/01/23 10:50 Home Medications Medication Instructions Recorded Confirmed Last Taken Type aripiprazole 2 mg tablet 2 mg PO DAILY 08/05/22 08/01/23 08/01/23 History bictegravir 30 mg-emtricitabine 1 tab PO DAILY 08/05/22 08/01/23 08/01/23 History 120 mg-tenofovir alafenam 15 mg tablet (Biktarvy) budesonide-formoterol HFA 160 2 puff inhalation BID 08/05/22 07/26/23 Unknown History mcg-4.5 mcg/actuation aerosol inhaler (Symbicort) duloxetine 60 mg capsule,delayed 60 mg PO DAILY 08/05/22 08/01/23 08/01/23 History release fexofenadine 60 mg tablet 60 mg PO DAILY 08/05/22 08/01/23 07/31/23 History flash glucose scanning reader 08/05/22 07/24/23 Unknown History ([employer]ing[employer]Style Juanjose 2 [place]) flash glucose sensor (FreeStyle 08/05/22 07/24/23 Unknown History Juanjose 2 Sensor kit) pravastatin 20 mg tablet 20 mg PO BEDTIME 08/05/22 08/01/23 07/31/23 History trazodone 50 mg tablet 50 mg PO BEDTIME PRN Insomnia 08/05/22 07/26/23 Unknown History albuterol sulfate 90 mcg/actuation 2 puff inhalation QID PRN 07/26/23 07/26/23 Unknown History aerosol inhaler (Ventolin HFA) Shortness Of Breath Or Wheezing fluticasone propionate 50 2 spray intranasal DAILY 07/26/23 07/26/23 Unknown History mcg/actuation nasal spray,suspension cetirizine 10 mg tablet (Zyrtec) 10 mg PO DAILY 07/27/23 07/27/23 Unknown History dapagliflozin propanediol 10 mg 10 mg PO DAILY 07/27/23 07/27/23 Unknown History tablet duloxetine 30 mg capsule,delayed 30 mg PO DAILY 07/27/23 08/01/23 08/01/23 History release sprinkle gabapentin 300 mg capsule 300 mg PO DAILY 03/08/01/23 07/31/23 History gabapentin 600 mg tablet 600 mg PO BEDTIME 07/27/23 08/01/23 07/31/23 History hydroxyzine HCl 50 mg tablet 50 mg PO BEDTIME 07/27/23 08/01/23 07/31/23 History oxybutynin chloride 15 mg 15 mg PO DAILY 07/27/23 08/01/23 08/01/23 History tablet,extended release 24 hr Exam Airway Mallampati Class: III TM Dist: >3cm Neck ROM: Full Loose/Missing/Broken Teeth: No Heart: [id number] Lungs: cta b/l Assessment and Plan Assessment Anesthesia Assessment: Anesthesia Plan Discussed Final Anesthetic Review Family History of Problems with Anesthesia: No History of Problems with Anesthesia: No NPO: Yes ASA Class: III Final Preanesthetic Review: No Changes in Pt Med Stat, Meds/Allgs Chart Reviewed, Consent Obtained/Reviewed and Anes Risks/Benef Reviewed Patient Risk: Intermediate Procedure Risk: Intermediate Assessment/Block/Sedation in SS: Assess/Block/Sedation- Anesthetic Plan Anesthetic Plan: GA Disposition: Standard PACU
[2023-08-01] VITALS (18 sets, daily range): BP systolic 136–168; BP diastolic 78–103; PULSE 89–120; RESP 10–21; TEMP 35.9–36.9; O2SAT 93–98; BMI 36.9
--- NOTE | 2023-08-01 | ECG_ITS ---
Test Reason : tachycardia Blood Pressure : / mmHG Vent. Rate : 118 BPM Atrial Rate : 118 BPM P-R Int : 152 ms QRS Dur : 078 ms QT Int : 342 ms P-R-T Axes : 070 002 033 degrees QTc Int : 479 ms Sinus tachycardia Possible Left atrial enlargement Borderline ECG When compared with ECG of 01-AUG-2023 11:12, No significant change was found Referred By: Maikol Culp Electronically Signed By:BEHZAD LYONS MD
--- NOTE | 2023-08-01 10:29 | ECG_ITS ---
Test Reason : pre op Blood Pressure : / mmHG Vent. Rate : 101 BPM Atrial Rate : 101 BPM P-R Int : 130 ms QRS Dur : 076 ms QT Int : 356 ms P-R-T Axes : 046 -08 030 degrees QTc Int : 461 ms Sinus tachycardia Otherwise normal ECG When compared with ECG of 30-AUG-2022 08:56, No significant change was found Referred By: Alexandra Bradley Electronically Signed By:BEHZAD LYONS MD
--- OUTSIDE RECORDS SUMMARY | 2023-08-01 10:33 | XMS_ITS | Continuity of Care Document ---
Author Name Unknown Organization [facility] Address [address] [place] [address]- Care Team Providers Care Food Broker Name Role Phone Not on Staff, PCP Primary Care Physician Unavail able Encounter [facility] Date(s): 11/29/22 - 12/29/22 [facility] [address] [place] [id number]- Attending Physician: Deborah Brady Admitting Physician: Deborah Brady Referring Physician: Deborah Brady Patient Care team information Care Team Personnel Name: Not on Staff, PCP Position: S Physician (General Medicine) Member Role: PCP
--- OUTSIDE RECORDS SUMMARY | 2023-08-01 10:33 | XMS_ITS | Continuity of Care Document ---
Author Name Unknown Organization [facility] Address [address] [place] [address]- Care Team Providers Care Wire Inserter Name Role Phone Not on Staff, PCP Primary Care Physician Unavail able Encounter [facility] Date(s): 09/05/22 - 10/05/22 [facility] [address] [place] [id number]- Patient Care team information Care Team Personnel Name: Not on Staff, PCP Position: [facility] Physician (General Medicine) Member Role: PCP
--- OUTSIDE RECORDS SUMMARY | 2023-08-01 10:33 | XMS_ITS | Continuity of Care Document ---
Author Name Unknown Organization [facility] Address [address] [place] [address]- Care Team Providers Care Zig Zag Spring Machine Operator Name Role Phone Not on Staff, PCP Primary Care Physician Unavail able Encounter [facility] Date(s): 11/29/22 - 12/29/22 [facility] [address] [place] [id number]- Attending Physician: Not on Staff, Attending MD Patient Care team information Care Team Personnel Name: Not on Staff, PCP Position: [facility] Physician (General Medicine) Member Role: PCP
--- OUTSIDE RECORDS SUMMARY | 2023-08-01 10:33 | XMS_ITS | Continuity of Care Document ---
Author Name Unknown Organization [facility] Address [address] [place] [address]- Care Team Providers Care Elevator Repair Mechanic Name Role Phone Not on Staff, PCP Primary Care Physician Unavail able Encounter [facility] Date(s): 04/13/23 - 05/13/23 [facility] [address] [place] [id number]- Patient Care team information Care Team Personnel Name: Not on Staff, PCP Position: [facility] Physician (General Medicine) Member Role: PCP
[2023-08-01] MEDS: Aprepitant 32 MG/4.4 ML VIAL IVPUSH (11:17)
[2023-08-01] MEDS: Lactated Ringers 1,000 ML 100 ML IVCONT ×2 (11:17→19:38)
[2023-08-01] MEDS: Lactated Ringers 1,000 ML 999 ML IV (11:17)
--- NOTE | 2023-08-01 11:25 | PC.NURSE ---
Celsa called to check pt home CPAP. Confirmation # [id number].
[2023-08-01 11:37] LABS: Glucose, Whole Blood 126 mg/dL (60-115)
--- NOTE | 2023-08-01 12:24 | PHA.MEDREC ---
Pharmacy Consult ? Medication Reconciliation Pharmacy has completed the medication reconciliation. Reviewed med rec done by nursing
--- NOTE | 2023-08-01 12:37 | MHC.SHP ---
Pre-Procedural Eval Section A - 24 Hr Update-Section A only Date of Service: 08/01/23 The patient is an INPATIENT: Yes The patient has been examined within 24 hours of the surgical procedure. The History & Physical has been completed within 30 days and I have reviewed it.: Yes Section B - Complete if H&P > 30 days Chief Complaint: Morbid obesity Relevant Family History (Specify if Yes): No Relevant Social History: None Present Medications: None Medical History: No relevant PMH History of Previous Operations: No relevant previous surgery Allergies: Allergies Allergy/AdvReac Type Severity Reaction Status Date / Time Sulfa (Sulfonamide Allergy Mild Hives Verified 08/01/23 10:50 Antibiotics) metoprolol Allergy Rash Verified 08/01/23 10:50 Review of Systems Sugical H&P ROS: Negative: Constitution, Cardiovascular, Respiratory, Neurological, Psychiatric, Hem-Onc, Allergic/Immunologic, Gastrointestinal, Genitourinary, Musculoskeletal, Integumentary, Endocrine and Eyes/Ears/Nose/Throat Exam Surgical H&P Exam: Normal: HEENT, Normal: Heart, Normal: Lungs, Normal: Extremities, Normal: Abdomen, Normal: Skin and Normal: Neurological Plan Diagnosis/Plan: Unchanged I have reviewed the history and physical and performed a pertinent physical examination on my patient. No changes have occurred unless specified. Time Spent With Patient Time: Total time managing care of this patient today ____ minutes.
--- NOTE | 2023-08-01 12:44 | PM.OP ---
Brief Operative Note Date of Service: 08/01/23 Pre-op diagnosis: Morbid obesity with comorbidities (see below) Post-op diagnosis: same Procedure: INITIAL PATIENT BMI ON PRESENTATION AT OUR OFFICE: 43.5 kg/m2 LAST BMI BEFORE SURGERY: 42.4 kg/m2 COMORBIDITIES: insulin dependent diabetes, sleep apnea on CPAP, HIV, hypertension, asthma, depression, anxiety, insomnia, neuropathy, hyperlipidemia, stress incontinence ?The patient presented to the Weight Management Program with significant obesity that was negatively impacting the patient's comorbidities as listed above.? The program is a phased program with a special focus on preoperative medical weight management to promote substantial weight loss and prepare the patients for the second phase of the program: bariatric surgery. The patient participated in an intensive weekly lifestyle ?intervention and exercise program during which the patient ?has lost between the initial office visit and the last preoperative visit 26lbs, or 10.1% of initial actual body weight. It was deemed appropriate for the patient to now have bariatric surgery. In light of the current Covid-19 pandemic and the well documented strong association of obesity and increased risk of worse outcomes if infected with Covid-19 (REFERENCES:https://pubmed.ncbi.nlm.nih.gov/59719595/,?https://pubmed.ncbi.nlm.nih.gov/43644270/), any delay in undergoing bariatric surgery may lead to the patient's worsening health condition and increased?risk of more severe Covid-19 disease if infected. In addition a recent?study from [facility] published in [employer] on 04/26/2021 ([email or web address]) found that, among patients with obesity, substantial weight loss achieved with surgery was associated with improved outcomes of COVID-19 infection. The findings suggest that obesity can be a modifiable risk factor for the severity of COVID-19 infection. In addition, the patient met the BMI-criteria for bariatric surgery based on the BMI on initial presentation. The patient should not be penalized for achieving such weight loss because ?it is not sustainable long-term without surgical intervention and it was achieved in preparation for bariatric surgery ?under my direction and based on my published research ([email or web address]).[email or web address] and?https://www.soard.org/article/[email or web address](43)26154-X/pdf) ?that a 10% preoperative weight loss improves long-term weight loss after surgery and reduces perioperative complications.? Insurance carriers such as [facility] have endorsed my recommendations ?and have included in their policies criteria to include a 10% preoperative weight loss requirement. PROCEDURE: Esophago-gastroscopy, laparoscopic sleeve gastrectomy and laparoscopic gastropexy INDICATIONS: This is a 63 year-old female who was electively scheduled for laparoscopic, possibly open sleeve gastrectomy. The risks and complications of the procedure were discussed with the patient in advance, particularly the possibility of ; pulmonary embolism; staple line leak; bleeding; GERD; cardiac, pulmonary, or renal complications; as well as long-term problems such as insufficient weight loss, vitamin deficiency, strictures, or ulcers. The patient understood all the risks, and was in agreement to proceed with surgery. DESCRIPTION OF PROCEDURE: After informed consent was obtained from the patient, the patient was given preoperative antibiotics, and was transferred to the operating room. After successful induction of general anesthesia, pneumatic compression devices were placed on both lower extremities. An upper endoscopy was performed next. The oropharynx and esophagus appeared to be within normal limits. There was no diaphragmatic hernia present consistent with the findings of the preoperative upper GI. The stomach was entered. Then after all fluid and air were suctioned and the stomach was fully decompressed, the scope was withdrawn and secured in the mid esophagus. The patient was then prepped and draped in the usual sterile manner, and abdominal access was established at the right upper quadrant with the Napoleon technique. A 12 mm blunt port was inserted, and the abdomen was insufflated with CO2 to a pressure of 15 mmHg. Under direct visualization, additional ports were placed, specifically two 5 mm Versi-step ports to the left upper quadrant, and a 5 mm Versi-Step port to the right upper quadrant. 1% lidocaine plain was used to infiltrate all port sites as well as all fascia defects. Following that, the patient was placed in a steep reverse Trendelenburg position. An additional 5 mm port was placed to the right flank for the Mediflex retractor that was used to retract the left lobe of the liver. The gastro-esophageal fat pad was opened with the ultrasonic device (Thunderbeat, Olympus) and the anterior esophagus and hiatus were exposed. The angle of His was opened with the ultrasonic device the fundus of the stomach from any diaphragmatic and splenic attachments. I then opened the gastrocolic ligament between the transverse colon and the greater curvature of the stomach with the ultrasonic device to enter the lesser sac and facilitate the ligation of the short gastric vessels. I started at a mid-point along the greater curvature and using the Thunderbeat, all short gastric vessels were divided all the way to the angle of His until the left lion was completely dissected at its entirety. I then divided the gastro-colic ligament distally to a distance of about 3-4 cm proximal to the pylorus. The stomach was then divided transversely with two Endo LIZETH-45 purple and four LIZETH-60 articulating purple loads using the [employer] stapler and loads. Every effort was made that the gastric sleeve had a tubular shape and an even caliber throughout. Once the sleeve resection was completed, the staple line of the gastric sleeve was reinforced with Hemoclips. The resected stomach was retrieved without difficulty from the Napoleon port. A gastropexy was then performed in order to prevent postoperative GERD and partial gastric volvulus. Several interrupted 2.0 Surgidac sutures were placed between the sleeve's staple line and the previously divided greater omentum and gastro-colic ligament using the Endo-Stitch device. ?An upper endoscopy was performed. There was no narrowing at the GE junction. The scope was easily advanced all the way to the pylorus which was clearly visualized. There was no narrowing anywhere and the sleeve's caliber was even throughout. The sleeve's staple line was inspected and there was no evidence of ischemia, bleeding or dehiscence. At that point the gastroscope was withdrawn from the patient?s mouth while we were decompressing the bowel and the stomach from any remaining air. I looked into the lesser sac to see how the sleeve was situating and it was situating well. There was no bleeding from the staple line, spleen, or short gastric vessels. The Mediflex retractor was removed, and the undersurface of the liver was inspected and there was no bleeding. The patient was placed in supine position. I closed the fascial defect of the 12 mm port site with a figure of eight #1 Polysorb suture. Then 30cc Ropivacaine plain with 10 mg of Dexamethasone were used to infiltrate the fascial closure as well as all skin incisions. At this point, the abdomen was deflated, all ports were removed under direct vision, and no bleeding was noted from any of the port sites. The skin incisions were irrigated with saline and were closed with 4-0 absorbable monofilament sutures. Steri-Strips and OpSites were used to cover all incisions. The patient was extubated and was transferred in stable condition to the recovery room for further care. I was present and performed all moreira parts of the procedure. Ms. Hayward was the virtual assistant. There were no residents to assist with this case. Randall Carrasco MD, PhD, FACS Surgeon: Moses Carrasco MD Anesthesia: GETA, local and other (TAP block) Was an Hack Saw Operator used for this Procedure?: No Hack Saw Operator: Alpa Hayward Estimated blood loss (mL): 10 IV fluids (mL): 3,000 Urine output (mL): 0 (No Brownlee to record output) Pathology: other (Stomach) Condition: stable Disposition: PACU
--- NOTE | 2023-08-01 12:48 | P.PNGS_ITS ---
Subjective Subjective Date of Service: 08/02/23 Interval history: Feels well. Mild incisional pain. She is tolerating phase 1 bariatric diet Had tachycardia last night. EKG and repeat H/H were ok I prescribed Atenolol and that controlled the heart rate and her blood pressure Feels very well this morning Physical Exam 2 Vital Signs: Vital Signs: Last Vital Signs Temp 96.6 F L 08/01/23 11:09 Pulse 108 H 08/01/23 11:09 Resp 16 08/01/23 11:09 BP 143/88 H 08/01/23 11:09 Pulse Ox 98 08/01/23 11:09 O2 Del Method Room Air 08/01/23 11:09 BMI result Body Mass Index 36.9 GI: Inspection: Yes normal to inspection, Yes incision (clean, dry and intact) and Yes obesity Palpation (GI): Soft to palpation Extrem: Right lower extremity: normal to inspection (no calf tenderness) L eft lower extremity: normal to inspection (no calf tenderness) Objective Data Active Medications Lactated Ringer's (Lr) 1,000 mls @ 100 mls/hr IVCONT .Q10H DAVID Last Admin: 08/01/23 11:17 Dose: 100 mls/hr Documented By: AMBREEN Labs 08/02/23 04:58 08/02/23 04:58 Labs: Laboratory Results - last 24 hr 08/01/23 11:33 POC Glucose 126 H Procedures Date of Service Date of Service: 08/02/23 Progress Note: A&P Assessment and plan (1) Morbid obesity: Status: Inactive Assessment and Plan: s/p laparoscopic sleeve gastrectomy and gastropexy Doing well Will check am labs and if OK the patient will be discharged home (2) HTN (hypertension): Status: Acute (3) Diabetes: Status: Acute (4) HIV (human immunodeficiency virus infection): Status: Acute (5) Hypercholesterolemia: Status: Acute (6) Depression: Status: Acute (7) KRYSTIAN (obstructive sleep apnea): Status: Acute (8) Neuropathy: Status: Acute (9) Insulin dependent type 2 diabetes mellitus: Status: Acute (10) Stress incontinence: Status: Acute (11) Asthma: Status: Acute (12) GERD (gastroesophageal reflux disease): Status: Acute (13) Liver fibrosis: Status: Acute Time Spent With Patient Time: Total time managing care of this patient today ____ minutes. Quality Stroke Does the patient have a stroke diagnosis?: No VTE Prior VTE?: No VTE Risk Level:: Surgical - moderate VTE Device Contraindication: N/A - Device Ordered VTE Drug Contraindication: Treatment Not Indicated
--- NOTE | 2023-08-01 13:13 | P.DS_ITS ---
DS: Providers Provider Date of Service: 08/01/23 Date of admission: 08/01/23 10:29 Primary care physician: Teresita Calderón MD DS: Diagnosis Discharge Diagnosis (1) HTN (hypertension): Status: Acute (2) Diabetes: Status: Acute (3) HIV (human immunodeficiency virus infection): Status: Acute (4) Hypercholesterolemia: Status: Acute (5) Depression: Status: Acute (6) KRYSTIAN (obstructive sleep apnea): Status: Acute (7) Neuropathy: Status: Acute (8) Insulin dependent type 2 diabetes mellitus: Status: Acute (9) Stress incontinence: Status: Acute (10) Asthma: Status: Acute (11) GERD (gastroesophageal reflux disease): Status: Acute (12) Liver fibrosis: Status: Acute DS: Summary Hospital Course Hospital Course: ADMITTING DIAGNOSIS: morbid obesity,?liver fibrosis, GERD, asthma, IDDM2, KRYSTIAN, HLD, HTN, HIV, neuropathy, hypoxia DISCHARGE DIAGNOSIS: same, s/p laparoscopic sleeve gastrectomy and gastropexy PAST SURGICAL HISTORY:? Hx of appendectomy Hx of cataract surgery Hx of tonsillectomy Hx of tracheostomy ? PROCEDURE: upper endoscopy, laparoscopic sleeve gastrectomy and gastropexy DISCHARGE SUMMARY: History of Present Illness: The patient is a?63 year-old woman with a BMI of? 36.9? kg/m2 and associated co- morbidities as described above. The patient had extensive work-up, lost? 54 ? lbs preoperatively and was electively scheduled for laparoscopic, possible open sleeve gastrectomy and gastropexy. Risks and complications of the surgery were discussed with the patient in advance, particularly the possibility of , pulmonary embolism, anastomotic leak, bleeding, bowel injury, GERD, cardiac, renal or pulmonary complications. The patient understood all the risks and was in agreement with the surgical plan. Hospital Course: The patient underwent an uneventful laparoscopic sleeve gastrectomy with gastropexy on the day of admission. Postoperatively, the patient was transferred to the surgical floor. The patient received IV Acetaminophen and IV dilaudid for pain control. Patient was started on bariatric phase 1 diet POD #0. On postoperative day one, the patient was feeling well without nausea, vomiting, fevers, or tachycardia. The patient had some mild incisional pain and the abdomen was soft.? On the morning of postoperative day one, the patient was continued on 1 ounce of water or ice every half hour. During the day, the patient did fairly well, having some incisional pain, but able to ambulate adequately and to tolerate liquids well. Since the patient is doing well, we decided that the patient was ready to be discharged. The patient was given instructions to follow-up with me next week and to call my office for any fever over 101, persistent abdominal pain, nausea, vomiting, GERD, symptoms of DVT such as calf tenderness, or leg swelling, or pulmonary embolism such as chest pain or shortness of breath.? The patient was also instructed to drink 40-60 ounces of liquids per day using the 1-ounce cups. The patient had been given prescriptions for Tylenol for pain, Zofran prn for nausea, and pantoprazole and carafate previously. The patient was encouraged to ambulate and use the incentive spirometer. The patient was allowed to shower, but no baths, and encouraged to stay active at home. All of these instructions were given to the patient personally. All questions were answered and the patient understood all instructions, the instructions were also given to the patient in print. Time Attestation Discharge Coordination Time (in mins): 30 Quality: Safe Use of Opioids Does Pt have an Active Cancer Diagnosis on the Problem List?: No Quality: Stroke Does the patient have a stroke diagnosis?: No Physical Exam Vital Signs: Vital Signs: Last Vital Signs Temp 96.6 F L 08/01/23 11:09 Pulse 108 H 08/01/23 11:09 Resp 16 08/01/23 11:09 BP 143/88 H 08/01/23 11:09 Pulse Ox 98 08/01/23 11:09 O2 Del Method Room Air 08/01/23 11:09 BMI result Body Mass Index 36.9 DS: Data Data Completed and Pending Labs on day of discharge: Laboratory Results - last 24 hr 08/01/23 11:33 POC Glucose 126 H Discharge Plan Discharge Anticipated Discharge Date/Time: 08/02/23 10:00 Patient Disposition: Home, Self-Care Discharge Diagnosis: obesity Referrals: Teresita Calderón MD [Primary Care Provider] - 1 Week Discharge Medications: Continued albuterol sulfate [Ventolin HFA] 90 mcg/actuation Hfa Aerosol Inhaler 2 puff INHALATION QID PRN (Reason: Shortness Of Breath Or Wheezing) fluticasone propionate 50 mcg/actuation spray,suspension 2 spray intranasal DAILY gabapentin 300 mg capsule 300 mg PO DAILY cetirizine [Zyrtec] 10 mg Tablet 10 mg PO DAILY duloxetine 30 mg Capsule, Delayed Rel Sprinkle 30 mg PO DAILY Patient Comments: total of 90 mg daily oxybutynin chloride 15 mg tablet extended release 24hr 15 mg PO DAILY Biktarvy 30-120-15 mg tablet 1 tab PO DAILY aripiprazole 2 mg tablet 2 mg PO DAILY budesonide-formoterol [Symbicort] 160-4.5 mcg/actuation HFA aerosol inhaler 2 puff inhalation BID duloxetine 60 mg capsule,delayed release(DR/EC) 60 mg PO DAILY (DME) FreeStyle Juanjose 2 Sensor Kit See Rx Instructions .Route Rx Instructions: As directed (DME) FreeStyle Juanjose 2 [place] Misc See Rx Instructions .Route Rx Instructions: As directed fexofenadine 60 mg tablet 60 mg PO DAILY pravastatin 20 mg tablet 20 mg PO BEDTIME pantoprazole 40 mg tablet,delayed release (DR/EC) 40 mg PO DAILY Qty: 90 0RF sucralfate 100 mg/mL suspension 10 ml PO BID Qty: 600 2RF ondansetron 4 mg tablet,disintegrating 4 mg PO Q12H Qty: 20 0RF Rx Instructions: Only take one every 12 hours as needed if you have nausea Held atenolol 25 mg tablet 25 mg PO DAILY 90 Days Qty: 90 1RF Hold Instructions: Resume on 08/03/23. Check your blood pressure every morning as soon as you wake up and send it to Dr. Carrasco. Do no take the blood pressure medication if the blood pressure is below 120/70. Wait every day to hear back from Dr. Carrasco before you take the medication. gabapentin 600 mg Tablet 600 mg PO BEDTIME Hold Instructions: Resume on 08/16/23. hydroxyzine HCl 50 mg tablet 50 mg PO BEDTIME Hold Instructions: Resume on 08/05/23. trazodone 50 mg tablet 50 mg PO BEDTIME PRN (Reason: Insomnia) Hold Instructions: Resume on 08/09/23. Discontinued thiamine HCl (vitamin B1) 100 mg tablet 100 mg PO DAILY 90 Days Qty: 90 0RF vitamin A palmitate 3,000 mcg (10,000 unit) capsule 3,000 mcg PO DAILY 90 Days Qty: 90 0RF cholecalciferol (vitamin D3) 125 mcg (5,000 unit) capsule 125 mcg PO DAILY Qty: 90 0RF dapagliflozin propanediol 10 mg tablet 10 mg PO DAILY polyethylene glycol 3350 [Miralax] 17 gram powder in packet 17 g PO DAILY Qty: 14 0RF Rx Instructions: Mix each packet with 8oz of water, Crystal light, or Gatorade zero, or Propel and do 7 packets on 07/30/23 and another 7 packets on 07/31/23 Discharge Orders: Discharge Order (Routine); Ordered 08/02/23 Ordered By: Moses Carrasco Activity on Discharge: No heavy lifting Stand Alone Forms: Patient Portal Discharge page Print Language: Spanish Care Plan Goals: weight loss Health Concerns: obesity Plan of Treatment: No tub baths, sex or returning to work until discussed at first post op appointment. No alcohol, tobacco or illegal drug use. Continue to use incentive spirometer hourly while awake. Walk in home for 5- 10 minutes every 2 hours during the first week. Wear abdominal binder with activity. Follow all meal plan instructions from your bariatric surgeon. Review bariatric handbook and call with any questions. Discharge Instructions 1. Please call your doctor or come back to the emergency room should any new symptoms arise. 2. Activity: abstain from alcohol,? limited stair climbing, no bending, no driving, no exercise, no illicit substances, no lifting, no sex, no tub bath, no work. 4. Diet: follow your bariatric surgeons recommendations for advancing diet. 5. Dressing Change/Wound Care: Your incisions are covered with waterproof dressings. You can shower with these and pat dry. Do not rub over dressings or incisions. If the area is tender, you may apply an ice pack for short intervals (no more than 20 minutes on, followed by at least 20 minutes off). Do not apply heat. Do not use creams, lotions, or topical antibiotics unless instructed to do so by your surgeon. 6. Call your doctor if: - Your temperature exceeds 101.5 F - You experience excessive pain or swelling - You have an unexpected reaction to medication - You have excessive bleeding - You experience continued vomiting/nausea - Your incision begins to separate - Your incision shows signs of infection such as increased redness, swelling, excessive pain, heat, or drainage (light blood or clear fluid is normal) General instructions: No lifting greater than 10 lbs for the next 6 weeks[address] driving within 24 hours of taking narcotic pain medications. If you do not move your bowels in the next 2 days, please take milk of magnesia over the counter. Please follow the post op diet and do not advance your diet until you are seen in the office in about 2 weeks. Please walk around your home every hour or two to prevent blood clots from forming in your legs. You do not need to wake from sleeping to walk. Please sleep in a bed or couch to prevent kinking at the hips and knees. Please take your incentive spirometer (your lung senior asic design engineer) home with you and use it for the next few days to prevent pneumonias. You may shower, no hot tubs, baths or swimming pools. Please call the office with any questions or concerns such as increasing abdominal pain, fever, chills, shortness of breath, chest pain, leg pain or swelling, or redness or drainage from your incisions. Please make sure you are consuming 40-60 ounces of total fluids per day. Avoid all carbonation. Do not hesitate to contact the office with any questions at . The patient's medical history has been reviewed and they are considered low risk for post op DVT and therefore DVT prophylaxis is not considered necessary. Travel after surgery was reviewed. The patient has not disclosed any travel plans during the first 30 days after surgery and they have been advised that within the first 30 days after surgery any bus, plane, train or car travel over 2 hours in duration is contraindicated due to the possibility of developing blood clots from immobility. Any travel, needs to include periods of ambulation of 10 minutes in duration every 2 hours.? The patient was instructed to discuss any plans for travel during this period with their bariatric surgeon. Assessment: s/p laparoscopic sleeve gastrectomy with gastropexy Discharge Date/Time: 08/02/23 09:47
--- NOTE | 2023-08-01 15:53 | HO.ANESEVENT ---
Anesthesia Event Note Date of Service: 08/29/23 Event Note: Post-extubation and on arrival to PACU, the patient required jaw thrust to maintain a patent airway. Airway obstruction not relieved with nasal trumpet. Therefore called RT and put her on CPAP. CPAP 10 cm (plus improved mental status over time) completely resolved her airway obstruction. Breathing easy w RR about 11, CPAP +10, FiO2 35% -> Vt about 600cc, SpO2 95%. I anticipate that we'll be able to take the CPAP off in 20 min or so. Time Spent With Patient Time: Total time managing care of this patient today 22 min.
[2023-08-01 16:00] LABS: Hematocrit 40.4 % (37.0-47.0); Hemoglobin 13.4 g/dl (12.0-16.0)
[2023-08-01 16:15] LABS: Anion Gap 17 (12-20); Blood Urea Nitrogen 15 mg/dL (9-16); Calcium 9.6 mg/dL (8.4-10.2); Carbon Dioxide 23 mmol/L (22-29); Chloride 104 mmol/L (96-108); Creatinine Clr Calc Pharmacy 81.7; Estimated Glomerular Filt Rate > 60; Glucose Random 152 mg/dL (60-115); Potassium 4.7 mmol/L (3.3-5.1); Sodium 139 mmol/L (135-145)
[2023-08-01] MEDS: ceFAZolin Sodium/Dextrose,Iso 2 GM/50 ML PIGGYBACK IV (19:09)
[2023-08-01] MEDS: 0.9 % Sodium Chloride Flush 3 ML SYRINGE IVFLUSH ×2 (19:43→20:30)
[2023-08-01 19:52] LABS: Glucose, Whole Blood 175 mg/dL (60-115)
[2023-08-01] MEDS: Acetaminophen 1,000 MG/100 ML PIGGYBACK 16.7 MG IV (20:29)
[2023-08-01] MEDS: Sucralfate Oral Suspension 1 GM/10 ML ORAL.SUSP PO (20:30)
[2023-08-01] MEDS: ondansetron HCL 4 MG/2 ML VIAL IVPUSH (20:30)
[2023-08-01] MEDS: Famotidine/PF 20 MG/2 ML VIAL IVPUSH (20:30)
[2023-08-01 20:33] LABS: Hematocrit 41.7 % (37.0-47.0); Hemoglobin 13.8 g/dl (12.0-16.0)
[2023-08-01] MEDS: Insulin Lispro 100 UNIT/ML 3 ML VIAL SUBCUT ×2 (20:35→23:16)
[2023-08-01] MEDS: VerapamiL HCL 5 MG/2 ML VIAL IVPUSH (21:23)
[2023-08-01] MEDS: atenoloL 25 MG TABLET PO (22:32)
[2023-08-01 23:12] LABS: Glucose, Whole Blood 157 mg/dL (60-115)
[2023-08-02] MEDS: Acetaminophen 1,000 MG/100 ML PIGGYBACK 16.7 MG IV ×2 (02:25→07:45)
[2023-08-02 02:48] VITALS: BP 135/76; PULSE 88; RESP 18; TEMP 36.5; O2SAT 94
[2023-08-02 02:51] LABS: Glucose, Whole Blood 145 mg/dL (60-115)
[2023-08-02] MEDS: VerapamiL HCL 5 MG/2 ML VIAL IVPUSH (02:59)
[2023-08-02] MEDS: ondansetron HCL 4 MG/2 ML VIAL IVPUSH (02:59)
[2023-08-02 03:34] VITALS: BP 118/67; PULSE 79
[2023-08-02] MEDS: Lactated Ringers 1,000 ML 100 ML IVCONT (04:59)
[2023-08-02 05:33] LABS: MANUAL DIFF FLAG NO
[2023-08-02 05:40] LABS: Basophils Percent Auto 0.2 % (0-2); Hematocrit 39.8 % (37.0-47.0); Hemoglobin 13.2 g/dl (12.0-16.0); Imm Gran Abs Auto 0.06 X10*3/uL (0.00-0.03); Lymphocytes Absolute Auto 0.6 X10*3/uL (1.2-4.9); Lymphocytes Percent Auto 9.8 % (20-40); Mean Corpuscular HGB Conc 33.2 g/dl (31.0-35.0); Mean Corpuscular Hemoglobin 31.2 pg (27.0-33.0); Mean Corpuscular Volume 94.1 fL (80.0-98.0); Mean Platelet Volume 11.5 fL (9.4-12.3); Monocytes Absolute Auto 0.1 X10*3/uL (0.1-1.2); Monocytes Percent Auto 1.9 % (2-11); Neutrophils Absolute Auto 5.4 x10*3/uL (2.0-8.3); Neutrophils Percent Auto 87.1 % (45-73); Platelet Count 249 X10*3/uL (160-400); Red Blood Count 4.23 X10*6/uL (4.20-5.50); Red Cell Distribution Width 13.5 % (11.0-16.0); White Blood Count 6.2 X10*3/uL (4.8-10.8)
[2023-08-02 06:15] LABS: Anion Gap 23 (12-20); Blood Urea Nitrogen 16 mg/dL (9-16); Carbon Dioxide 14 mmol/L (22-29); Chloride 104 mmol/L (96-108); Creatinine Clr Calc Pharmacy 69.3; Estimated Glomerular Filt Rate > 60; Glucose Random 184 mg/dL (60-115); Potassium 4.9 mmol/L (3.3-5.1); Sodium 136 mmol/L (135-145)
[2023-08-02 07:25] VITALS: BP 114/59; PULSE 86; RESP 18; TEMP 36.4; O2SAT 91
[2023-08-02 07:30] LABS: Glucose, Whole Blood 173 mg/dL (60-115)
[2023-08-02] MEDS: Insulin Lispro 100 UNIT/ML 3 ML VIAL SUBCUT (07:45)
[2023-08-02] MEDS: Famotidine/PF 20 MG/2 ML VIAL IVPUSH (08:06)
[2023-08-02] MEDS: DULoxetine HCl 60 MG CAPSULE.DR PO (08:06)
[2023-08-02] MEDS: Loratadine 10 MG TABLET PO (08:06)
[2023-08-02] MEDS: ARIPiprazole 2 MG TABLET PO (08:06)
[2023-08-02] MEDS: DULoxetine HCl 30 MG CAPSULE.DR PO (08:06)
[2023-08-02] MEDS: Sucralfate Oral Suspension 1 GM/10 ML ORAL.SUSP PO (08:06)
[2023-08-02] MEDS: Fluticasone Propionate Nasal 16 GM SPRAY 2 SPRAY NOSTRIL-B (08:14)
[2023-08-02] MEDS: Fluticasone/Vilanterol 200/25 BLST.W.DEV 1 PUFF INHALE (08:25)
[2023-08-02 08:28] VITALS: PULSE 64; RESP 16; O2SAT 94
--- NOTE | 2023-08-02 08:49 | MHC.CM.PN ---
Addendum entered by Marian Madrigal RN 08/02/23 08:53: Correction: Patient to return home, resume LAUNDRY OR DRY CLEANERS COUNTER CLERK services. Original Note: Patient lives at home alone. Has daily LAUNDRY OR DRY CLEANERS COUNTER CLERK's for morning, afternoon and overnight hours (unsure of exact # of hours). LAUNDRY OR DRY CLEANERS COUNTER CLERK's assist w/ ADLs. Patient ambulates w/ wheeled walker. Has CPAP through [facility]. PCP Teresita Calderón MD Patient states HCP is daughter Oly Latif. Copy requested. DP: Patient is medically cleared for home self care. Daughter to provide transportation home ~9:30am. RN aware.
--- NOTE | 2023-08-02 14:56 | HO.POSTANES ---
Post Anesthesia Evaluation Post Anesthesia Evaluation Date of Service: 08/02/23 Vital Signs: Vital Signs Temp Pulse Resp BP Pulse Ox O2 Del Method 08/02/23 08:28 64 16 08/02/23 07:25 97.5 F 86 18 114/59 L 91 L Room Air 08/02/23 03:34 79 118/67 Anesthesia: General Endotracheal-GETA Mental Status: Awake Pain Control: Satisfactory Nausea/Vomiting: None Hydration: Adequate Anesthesia-Related Issues: No Anes. Related Issues
== END 2023-08-02 09:47 | disposition home or self-care (01) | DRG 403 ==
LOC: HO.SSSA 16:56 → HO.S3 18:23
PROVIDERS: Physician Assistant Surgical; Admitting Provider Surgery; PCP Internal Medicine; Visit Provider Surgery
PROC: 0DB64Z3 Excision of Stomach, Percutaneous Endoscopic Approach, Vertical (ICD-10-PCS; CPT 43845; principal; 2023-08-01 13:30)
DX: E66.01 Morbid (severe) obesity due to excess calories (principal); E11.40 Type 2 diabetes mellitus with diabetic neuropathy, unspecified; K74.00 Hepatic fibrosis, unspecified; I10 Essential (primary) hypertension; Z21 Asymptomatic human immunodeficiency virus [HIV] infection status; F32.A Depression, unspecified; F41.9 Anxiety disorder, unspecified; G47.00 Insomnia, unspecified; K21.9 Gastro-esophageal reflux disease without esophagitis; G47.33 Obstructive sleep apnea (adult) (pediatric); Z68.41 Body mass index [BMI] 40.0-44.9, adult; Z79.51 Long term (current) use of inhaled steroids; Z79.899 Other long term (current) drug therapy
CPT/HCPCS: 36415; 80048; 80053; 80061; 82947; 83036; 83525; 84443; 85014; 85018; 85025; 85610; 85730; 86140; 86850; 86900; 86901; 88304; 88307; 88342; 93005; 94640; 94660; A4649; C9145; J0131; J0690; J1100; J1170; J2250; J2371; J2405; J2704; J2795; J3010; J7120

== ENCOUNTER → 2023-08-01 10:29 | Outpatient (BNV) | payer OTHER, SELFPAY | PROVIDERS: Admitting Provider Surgery; PCP Internal Medicine; Visit Provider Internal Medicine Cardiovascular Disease | DX: R00.0 Tachycardia, unspecified (principal) | CPT/HCPCS: 93010 ==

== ENCOUNTER → 2023-08-01 10:29 | Outpatient (BNV) | payer OTHER, SELFPAY | PROVIDERS: Admitting Provider Surgery; PCP Internal Medicine; Visit Provider Anesthesiology | DX: J98.8 Other specified respiratory disorders (principal) | CPT/HCPCS: 99499 ==

== ENCOUNTER → 2023-08-01 10:29 | Outpatient (BNV) | payer OTHER, SELFPAY | PROVIDERS: Admitting Provider Surgery; PCP Internal Medicine; Visit Provider Surgery | DX: E66.01 Morbid (severe) obesity due to excess calories (principal); Z68.41 Body mass index [BMI] 40.0-44.9, adult; Z90.3 Acquired absence of stomach [part of]; Z98.84 Bariatric surgery status | CPT/HCPCS: 43659; 43775; 99024 ==

== ENCOUNTER 2023-08-08 09:41 | Outpatient (AMB) | payer OTHER, SELFPAY ==
--- NOTE | 2023-08-08 11:00 | MHC.OFFVISWM ---
Intake VS Expanded 08/08/23 11:26 BP 133/81 Blood Pressure Location Lt brachial Blood Pressure Position Sitting Pulse 135 H Pulse Source Pulse Oximeter Temp 97.0 F Temperature Source Temporal Artery Scan Pulse Oximetry 95 Oxygen Delivery Method Room Air Height 5 ft 3 in Weight 223 lb 3.2 oz BMI 39.5 Body Fat % 50.3 Body Fat Mass 112.2 Fat Free Mass 110.8 Visceral Fat Rating 16.0 Body Water % 35.2 Body Water Mass 78.4 Muscle Mass/Score 105.4 Basal Metabolic Rate/Score 1,584 Intake Visit Reasons: (OV) PO LSG 08/01/23 Armor Officer Required: No Allergies Sulfa (Sulfonamide Antibiotics) Allergy (Mild, Verified 08/01/23 10:50) Hives metoprolol Allergy (Verified 08/01/23 10:50) Rash Medication List - Last Reconciled 08/08/23 by MELVI Aldana albuterol sulfate 90 mcg/actuation (Ventolin HFA) 2 puffs inhalation QID PRN aripiprazole 2 mg PO DAILY atenolol 25 mg PO DAILY 90 days ezntzskbw-oegirqdm-jsafciw ala 30-120-15 mg (Biktarvy) 1 tab PO DAILY budesonide-formoterol 160-4.5 mcg/actuation (Symbicort) 2 puffs inhalation BID cetirizine (Zyrtec) 10 mg PO DAILY duloxetine 30 mg PO DAILY duloxetine 60 mg PO DAILY fexofenadine 60 mg PO DAILY flash glucose scanning reader (Simple [employer] Juan[place]ose 2 [place]) As directed flash glucose sensor (FreeStyle Juanjose 2 Sensor kit) As directed fluticasone propionate 50 mcg/actuation 2 sprays intranasal DAILY gabapentin 300 mg PO DAILY gabapentin 600 mg PO BEDTIME hydroxyzine HCl 50 mg PO BEDTIME oxybutynin chloride ER 15 mg PO DAILY pantoprazole 40 mg PO DAILY pravastatin 20 mg PO BEDTIME sucralfate 10 mL PO BID trazodone 50 mg PO BEDTIME PRN HPI HPI Comments History of Present Illness Details Patient is a pleasant 63-year-old female who returns to the office today. She is 6 days status post sleeve gastrectomy performed on 08/01/23. Tolerating 3 celebrate 4 in 1 shakes with 1 scoop each an an additional 24 oz of water. Positive bowel movement. No complaints of pain. [facility] Medical History GERD (gastroesophageal reflux disease) Stress incontinence Insulin dependent type 2 diabetes mellitus Neuropathy History of transfusion of packed red blood cells Arthritis Concussion Sleep apnea Asthma SOB (shortness of breath) Surgical History History of lumpectomy of right breast Hx of tracheostomy Hx of cataract surgery Hx of tonsillectomy Hx of appendectomy Family History Mother Diabetes Father No problems noted. Brother No problems noted. Brother No problems noted. Sister Thyroid disease Sister Heart disease Sister No problems noted. Sister No problems noted. Sister No problems noted. Daughter No problems noted. Daughter No problems noted. Daughter No problems noted. Son Thyroid disease Son No problems noted. Son No problems noted. Social History Household Members: None Housing: Apartment Are you a primary care center manager to a significant other at home: No Do you presently have visiting nurse or other home services: Yes (manager drug's) Alcohol intake: never Patient Tobacco Use Status: Never used Tobacco service: No Physical Exam GI Inspection: Yes incision (Clean, dry, intact.) Assessment & Plan Assessment & Plan (1) S/P laparoscopic sleeve gastrectomy: Code(s): Z98.84 - Bariatric surgery status Plan: POD 6 s/p LSG on 08/01/[address] Carrasco Weight loss prior to surgery was 26.4 pounds or 10 % TBWL. Original weight on 08/26/2022 was 262.4 pounds and op weight was 236 pounds. Be sure to text Dr Carrasco exactly 1 week after surgery your weight from your home scale so he can adjust your meal plan. Continue meal plan until f/u lesli Lassiter in 2 weeks May shower, no submersion in bath for another week Continue abdominal binder with activity and exercise for the next 2 weeks. Exercise prior to surgery was stationary, may re bike and walking sume No abdominal exercises for 6 weeks post operatively Will be emailed link to post op video for review Reminded of the pace of drinking, 2 mL per minute, 1 oz/15 min. Coding Level of Care Code Global (23157) Diagnoses S/P laparoscopic sleeve gastrectomy Z98.84
[2023-08-08 11:26] VITALS: BP 133/81; PULSE 135; TEMP 36.1; O2SAT 95; BMI 39.5
== END 2023-08-08 12:03 | disposition home or self-care (01) ==
PROVIDERS: PCP Internal Medicine; Visit Provider Physician Assistant Surgical
DX: E66.09 Other obesity due to excess calories (principal); Z68.39 Body mass index [BMI] 39.0-39.9, adult; Z90.3 Acquired absence of stomach [part of]; Z98.84 Bariatric surgery status
CPT/HCPCS: 99024

== ENCOUNTER → 2023-08-08 09:41 | Outpatient (BNVA) | payer OTHER, SELFPAY | PROVIDERS: PCP Internal Medicine; Visit Provider Physician Assistant Surgical | DX: Z48.815 Encounter for surgical aftercare following surgery on the digestive system (principal); Z98.84 Bariatric surgery status | CPT/HCPCS: 99212 ==

== ENCOUNTER 2023-08-09 15:21 | Outpatient (REF) | payer OTHER, SELFPAY ==
[2023-08-09 17:27] LABS: Estimated Average Glucose 171 mg/dL; Hemoglobin A1c % 7.6 % (<6.0)
[2023-08-09 17:44] LABS: Alanine Aminotransferase 14 U/L (0-31); Albumin Level 3.8 g/dL (3.5-5.0); Alkaline Phosphatase 82 U/L (39-117); Anion Gap 19 (12-20); Aspartate Amino Transferase 14 U/L (5-31); Blood Urea Nitrogen 28 mg/dL (9-16); Calcium 10.3 mg/dL (8.4-10.2); Carbon Dioxide 24 mmol/L (22-29); Chloride 96 mmol/L (96-108); Estimated Glomerular Filt Rate 50; Glucose Random 386 mg/dL (60-115); Potassium 4.8 mmol/L (3.3-5.1); Sodium 134 mmol/L (135-145); Total Protein 7.6 g/dL (6.5-8.0)
== END 2023-08-09 15:22 | disposition home or self-care (01) ==
LOC: HO.LAB 15:21
PROVIDERS: PCP Internal Medicine; Visit Provider Surgery
DX: E11.9 Type 2 diabetes mellitus without complications (principal); Z79.4 Long term (current) use of insulin
CPT/HCPCS: 36415; 80053; 83036

== ENCOUNTER → 2023-08-18 08:48 | Outpatient (BNVA) | payer OTHER, SELFPAY | PROVIDERS: PCP Internal Medicine; Visit Provider Physician Assistant Surgical ==

== ENCOUNTER 2023-08-23 13:46 | Outpatient (AMB) | payer OTHER, SELFPAY ==
--- NOTE | 2023-08-23 13:48 | MHC.OFFVISWM ---
VS Expanded 08/23/23 14:04 BP 179/80 H Blood Pressure Location Rt brachial Blood Pressure Position Sitting Pulse 86 Pulse Source Pulse Oximeter Temp 96.6 F L Temperature Source Temporal Artery Scan Pulse Oximetry 90 L Oxygen Delivery Method Room Air Height 5 ft 3 in Weight 221 lb 6.4 oz BMI 39.2 Body Fat % 47.6 Body Fat Mass 105.4 Fat Free Mass 116.0 Visceral Fat Rating 15.0 Body Water % 37.2 Body Water Mass 82.2 Muscle Mass/Score 110.0 Basal Metabolic Rate/Score 1,634 Intake Visit Reasons: (OV) PO LSG 08/01/23 Allergies Sulfa (Sulfonamide Antibiotics) Allergy (Mild, Verified 08/23/23 13:49) Hives metoprolol Allergy (Verified 08/23/23 13:49) Rash HPI Comments Details: This?a?63?yo female who is s/p LSG without hiatal hernia repair on?08/01/2023. Presents for 3 week post op visit. Weight today is 221.4 pounds, with a BMI of 39.2. There has been a 41 pound weight loss,(initial weight 262.4 pounds) since starting the program on 08/26/2022 reflecting a 15.6% total body weight loss and a weight loss of 14.6 pounds since surgery (operative weight 236 pounds) reflecting a 6.1% TBWL since surgery. No complaints of nausea, emesis, abdominal pain or reflux. Reports infrequent but normal bowel movements every 1-2 days and uses stool softeners regularly. She has been having somewhat erratic blood sugars, lowest of his 40s and highest in the low 300s. She has intermittently use Lantus, 35 units once or twice daily. She has not used it in the last 3 days and blood sugar readings have been in the 70s to low 100s. Wants to add some food Present meal plan includes: 2 celebrate 4 in 1 shakes 2 scoops each 10-12, 2-4 1 Orgain shake 1 scoop 6-8 pm Drinking 24 oz water ? Exercise routine includes: stationary bike, at home, 150 karin 2 x per day. [facility] Medical History GERD (gastroesophageal reflux disease) Stress incontinence Insulin dependent type 2 diabetes mellitus Neuropathy History of transfusion of packed red blood cells Arthritis Concussion Sleep apnea Asthma SOB (shortness of breath) Surgical History History of lumpectomy of right breast Hx of tracheostomy Hx of cataract surgery Hx of tonsillectomy Hx of appendectomy Family History Mother Diabetes Father No problems noted. Brother No problems noted. Brother No problems noted. Sister Thyroid disease Sister Heart disease Sister No problems noted. Sister No problems noted. Sister No problems noted. Daughter No problems noted. Daughter No problems noted. Daughter No problems noted. Son Thyroid disease Son No problems noted. Son No problems noted. Social History Household Members: None Housing: Apartment Are you a primary complex care nurse practitioner to a significant other at home: No Do you presently have visiting nurse or other home services: Yes (mandarin speaking nanny's) Alcohol intake: never Patient Tobacco Use Status: Never used Tobacco service: No Physical Exam Const General: healthy appearing and no acute distress Resp Effort & Inspection: normal respiratory effort Auscultation: clear to auscultation bilaterally Cardio Rate: regular rate Rhythm: regular rhythm GI Auscultation: normal bowel sounds Extrem General: Yes normal to inspection Assessment & Plan Assessment & Plan (1) S/P laparoscopic sleeve gastrectomy: Code(s): Z98.84 - Bariatric surgery status Category: Surgical Plan: Change meal plans slightly to account for filling station attendant wake up, slightly low blood sugars and request for food. Using celebrate 4 in 1, 2 scoops in 2 shakes and orgain, 1 scoop in 1 shake 8-10 shake 12-2 shake 4-6 Irish yogurt 6-8 shake Encouraged to increase water slightly by 8 oz. Continue exercise bike as she is able. Return to clinic 3 weeks. Of note, she states that finances are tight and she is wondering if she could switch to all orgain shakes, she is going to discuss this with Dr. Carrasco.
[2023-08-23 14:04] VITALS: BP 179/80; PULSE 86; TEMP 35.9; O2SAT 90; BMI 39.2
== END 2023-08-23 14:42 | disposition home or self-care (01) ==
PROVIDERS: PCP Internal Medicine; Visit Provider Physician Assistant Surgical
DX: Z98.84 Bariatric surgery status (principal)
CPT/HCPCS: 99024

== ENCOUNTER → 2023-08-23 13:46 | Outpatient (BNVA) | payer OTHER, SELFPAY | PROVIDERS: PCP Internal Medicine; Visit Provider Physician Assistant Surgical | DX: Z48.815 Encounter for surgical aftercare following surgery on the digestive system (principal); Z98.84 Bariatric surgery status | CPT/HCPCS: 99212 ==

== ENCOUNTER 2023-09-08 09:09 | Outpatient (AMB) | payer OTHER, SELFPAY ==
--- NOTE | 2023-09-08 08:20 | A.OFFVIS_ITS ---
VS Expanded 09/08/23 08:21 Height 5 ft 3 in Weight 217 lb 9.6 oz BMI 38.5 Body Fat % 53.1 Body Water % 34.1 Muscle Mass/Score 97.2 Intake Visit Reasons: Tele PO LSG 08/01/23 Sawmilling Operator Required: No Allergies Sulfa (Sulfonamide Antibiotics) Allergy (Mild, Verified 08/23/23 13:49) Hives metoprolol Allergy (Verified 08/23/23 13:49) Rash Medication List - Last Reconciled 09/08/23 by MELVI Aldana albuterol sulfate 90 mcg/actuation (Ventolin HFA) 2 puffs inhalation QID PRN aripiprazole 2 mg PO DAILY atenolol 25 mg PO DAILY 90 days cpozcnaon-rerbrdzh-sruyaql ala 30-120-15 mg (Biktarvy) 1 tab PO DAILY budesonide-formoterol 160-4.5 mcg/actuation (Symbicort) 2 puffs inhalation BID cetirizine (Zyrtec) 10 mg PO DAILY duloxetine 30 mg PO DAILY duloxetine 60 mg PO DAILY fexofenadine 60 mg PO DAILY flash glucose scanning reader ([employer]W TechnologiesStyle Juanjose 2 [place]) As directed flash glucose sensor (FreeStyle Juanjose 2 Sensor kit) As directed fluticasone propionate 50 mcg/actuation 2 sprays intranasal DAILY gabapentin 300 mg PO DAILY gabapentin 600 mg PO BEDTIME hydroxyzine HCl 50 mg PO BEDTIME oxybutynin chloride ER 15 mg PO DAILY pantoprazole 40 mg PO DAILY pravastatin 20 mg PO BEDTIME sucralfate 10 mL PO BID trazodone 50 mg PO BEDTIME PRN HPI Comments Details: This?a?63?yo female who is s/p LSG without hiatal hernia repair on?08/01/2023. Presents for 6 week post op visit. Weight today is 217.6 pounds, with a BMI of 38.5. There has been a 44.8 pound weight loss,(initial weight 262.4 pounds) since starting the program on 08/26/2022 reflecting a 17% total body weight loss and a weight loss of 18.4 pounds since surgery (operative weight 236 pounds) reflecting a 7.7% TBWL since surgery. No complaints of nausea, emesis, abdominal pain or reflux. Reports infrequent but normal bowel movements every 1- 2 days and uses stool softeners regularly. She saw her endocinologist and she has been using humulog 2 units 3 x per day. She is no longer using lantus and BS have been 140s-170s. She has not had any low blood sugars. Highest 180. She is limited financially and she is not using celebrate 4:1. Now doing well w current meal plan as directed by Dr Carrasco. Taking bariatric MVI. Present meal plan includes: Using Orgain and 8 oz milk 7-9 shake, 1 scoop 10-12 shake, 1 scoop 1-3 shake, 1 scoop 4-6 shake 1/2 scoop 7-9 salvadorean yogurt. Drinking 32 oz water ? Exercise routine includes: stationary bike, at home, 400-450 karin per day. walking outside [facility] Medical History GERD (gastroesophageal reflux disease) Stress incontinence Insulin dependent type 2 diabetes mellitus Neuropathy History of transfusion of packed red blood cells Arthritis Concussion Sleep apnea Asthma SOB (shortness of breath) Surgical History History of lumpectomy of right breast Hx of tracheostomy Hx of cataract surgery Hx of tonsillectomy Hx of appendectomy Family History Mother Diabetes Father No problems noted. Brother No problems noted. Brother No problems noted. Sister Thyroid disease Sister Heart disease Sister No problems noted. Sister No problems noted. Sister No problems noted. Daughter No problems noted. Daughter No problems noted. Daughter No problems noted. Son Thyroid disease Son No problems noted. Son No problems noted. Social History Household Members: None Housing: Apartment Are you a primary managed care liaison to a significant other at home: No Do you presently have visiting nurse or other home services: Yes (senior software development engineer's) Alcohol intake: never Patient Tobacco Use Status: Never used Tobacco service: No Telehealth Telehealth Telehealth Platform: Telephone Location of provider rendering services: practice address Location of patient: address on file Patient Identification confirmed using: Name, : Yes Telehealth method: voice only Patient verbally consented to treatment: Yes Patient verbally consented to billing insurance company: Yes Patient informed of any privacy concerns related to visit: Yes Minutes spent on Phone/Video with Pt.: 20 Assessment & Plan Assessment & Plan (1) S/P laparoscopic sleeve gastrectomy: Code(s): Z98.84 - Bariatric surgery status Category: Surgical Plan: Overall, now making good progress. She additionally has improved glycemic control. She has no longer requiring long-acting insulins. She still is having blood sugars over 150 although does take Humalog intermittently. She will continue her current meal plan, exercise plan and return to the office in 3 weeks. She has been encouraged to continue to text weekly.
[2023-09-08 08:21] VITALS: BMI 38.5
== END 2023-09-08 09:14 | disposition home or self-care (01) ==
LOC: HO.HBS 09:09
PROVIDERS: PCP Internal Medicine; Visit Provider Physician Assistant Surgical
DX: Z98.84 Bariatric surgery status (principal)
CPT/HCPCS: 99024

== ENCOUNTER → 2023-09-08 09:09 | Outpatient (BNVA) | payer OTHER, SELFPAY | PROVIDERS: PCP Internal Medicine; Visit Provider Physician Assistant Surgical | DX: Z98.84 Bariatric surgery status (principal) | CPT/HCPCS: 99212 ==

== ENCOUNTER 2023-10-09 14:26 | Outpatient (AMB) | payer OTHER, SELFPAY ==
--- NOTE | 2023-10-09 08:28 | A.OFFVIS_ITS ---
VS Expanded 10/09/23 08:29 Height 5 ft 3 in Weight 203 lb 12.8 oz BMI 36.1 Body Fat % 52.2 Body Fat Mass 106.3 Intake Visit Reasons: Tele PO LSG 08/01/23 Allergies Sulfa (Sulfonamide Antibiotics) Allergy (Mild, Verified 08/23/23 13:49) Hives metoprolol Allergy (Verified 08/23/23 13:49) Rash HPI Comments Details: This?a?63?yo female who is s/p LSG without hiatal hernia repair on?08/01/2023. Presents for 2 month post op visit. Weight today is 203.8 pounds, with a BMI of 36.1. There has been a 58.6 pound weight loss,(initial weight 262.4 pounds) since starting the program on 08/26/2022 reflecting a 22.3% total body weight loss and a weight loss of 32.2 pounds since surgery (operative weight 236 pounds) reflecting a 13.6% TBWL since surgery. No complaints of nausea, emesis, abdominal pain or reflux. Reports infrequent but normal bowel movements every 1- 2 days and uses stool softeners regularly. She saw her endocinologist and she has been using sliding scale humulog as needed. She is no longer using lantus and BS have been 140s-170s. She has not had any low blood sugars. Highest 180. Now doing well w current meal plan as directed by Dr Carrasco. Taking bariatric MVI. Wants to add food back in. No longer using a scooter at the store. Present meal plan includes: Using Orgain and 8 oz unsweetened almond milk 7-9 shake, 1 scoop 10-12 shake, 1 scoop 1-3 shake, 1 scoop 4-6 shake 1/2 scoop 7-9 [place] yogurt. Drinking 32 oz water Exercise routine includes: stationary bike, daily 3 x per day at home, 500-600 calories per day. walking outside [facility] Medical History GERD (gastroesophageal reflux disease) Stress incontinence Insulin dependent type 2 diabetes mellitus Neuropathy History of transfusion of packed red blood cells Arthritis Concussion Sleep apnea Asthma SOB (shortness of breath) Surgical History History of lumpectomy of right breast Hx of tracheostomy Hx of cataract surgery Hx of tonsillectomy Hx of appendectomy Family History Mother Diabetes Father No problems noted. Brother No problems noted. Brother No problems noted. Sister Thyroid disease Sister Heart disease Sister No problems noted. Sister No problems noted. Sister No problems noted. Daughter No problems noted. Daughter No problems noted. Daughter No problems noted. Son Thyroid disease Son No problems noted. Son No problems noted. Social History Household Members: None Housing: Apartment Are you a primary resident care associate to a significant other at home: No Do you presently have visiting nurse or other home services: Yes (chocolate coater's) Alcohol intake: never Patient Tobacco Use Status: Never used Tobacco service: No Telehealth Telehealth Telehealth Platform: Telephone Location of provider rendering services: practice address Location of patient: address on file Patient Identification confirmed using: Name, : Yes Telehealth method: voice only Patient verbally consented to treatment: Yes Patient verbally consented to billing insurance company: Yes Patient informed of any privacy concerns related to visit: Yes Minutes spent on Phone/Video with Pt.: 15 Assessment & Plan Assessment & Plan (1) S/P laparoscopic sleeve gastrectomy: Code(s): Z98.84 - Bariatric surgery status Category: Medical Plan: Patient wishes to incorporate food. We will change meal plan slightly: Using Orgain and 8 oz unsweetened almond milk 7-9 shake, 1 scoop 10-12 shake, 1 scoop 1-3 shake, 1 scoop 4-6 meal with 4 forks protein and 2 forks cooked vegetables 7-9 [place] yogurt. Continue exercises she is doing. Return to office in 1 month
[2023-10-09 08:29] VITALS: BMI 36.1
== END 2023-10-09 14:26 | disposition home or self-care (01) ==
LOC: HO.HBS 14:26
PROVIDERS: PCP Internal Medicine; Visit Provider Physician Assistant Surgical
DX: E66.9 Obesity, unspecified (principal); Z68.36 Body mass index [BMI] 36.0-36.9, adult; Z90.3 Acquired absence of stomach [part of]; Z98.84 Bariatric surgery status
CPT/HCPCS: 99024

== ENCOUNTER → 2023-10-09 14:26 | Outpatient (BNVA) | payer OTHER, SELFPAY | PROVIDERS: PCP Internal Medicine; Visit Provider Physician Assistant Surgical | DX: Z48.815 Encounter for surgical aftercare following surgery on the digestive system (principal); Z98.84 Bariatric surgery status | CPT/HCPCS: 99212 ==

== ENCOUNTER → 2023-11-14 09:57 | Outpatient (BNVA) | payer OTHER, SELFPAY | PROVIDERS: PCP Internal Medicine; Visit Provider Physician Assistant Surgical ==

== ENCOUNTER 2023-12-08 11:16 | Outpatient (AMB) | payer OTHER, SELFPAY ==
--- NOTE | 2023-12-08 11:01 | MHC.OFFVISWM ---
VS Expanded 12/08/23 11:09 Height 5 ft 3 in Weight 195 lb BMI 34.5 Intake Visit Reasons: (TV) PO LSG 08/01/23 Allergies Sulfa (Sulfonamide Antibiotics) Allergy (Mild, Verified 08/23/23 13:49) Hives metoprolol Allergy (Verified 08/23/23 13:49) Rash HPI Comments Details: This?a?63?yo female who is s/p LSG without hiatal hernia repair on?08/01/2023. Presents for 4 month post op visit. Weight today is 195 pounds, with a BMI of 34.5. There has been a 67.4 pound weight loss,(initial weight 262.4 pounds) since starting the program on 08/26/2022 reflecting a 25.6% total body weight loss and a weight loss of 41 pounds since surgery (operative weight 236 pounds) reflecting a 17.3% TBWL since surgery. No complaints of nausea, emesis, abdominal pain or reflux. Reports infrequent but normal bowel movements every 1-2 days and uses stool softeners regularly. She states that she was depressed last week and didn't exercise. Taking bariatric MVI. Present meal plan includes: Using Orgain and 8 oz unsweetened almond milk 7-9 shake, 1 scoop 10-12 shake, 1 scoop 1-3 shake, 1 scoop 4-6 meal with 4 forks protein and 4 forks cooked vegetables 7-9 belize[place] yogurt. Drinking 32 oz water Exercise routine includes: stationary bike, daily 3 x per day at home, 500-600 calories per day. REPLACED BY [facility] Medical History GERD (gastroesophageal reflux disease) Stress incontinence Insulin dependent type 2 diabetes mellitus Neuropathy History of transfusion of packed red blood cells Arthritis Concussion Sleep apnea Asthma SOB (shortness of breath) Surgical History History of lumpectomy of right breast Hx of tracheostomy Hx of cataract surgery Hx of tonsillectomy Hx of appendectomy Family History Mother Diabetes Father No problems noted. Brother No problems noted. Brother No problems noted. Sister Thyroid disease Sister Heart disease Sister No problems noted. Sister No problems noted. Sister No problems noted. Daughter No problems noted. Daughter No problems noted. Daughter No problems noted. Son Thyroid disease Son No problems noted. Son No problems noted. Social History Household Members: None Housing: Apartment Are you a primary customer care consultant to a significant other at home: No Do you presently have visiting nurse or other home services: Yes (director payment's) Alcohol intake: never Patient Tobacco Use Status: Never used Tobacco service: No Telehealth Telehealth Telehealth Platform: Telephone Location of provider rendering services: practice address Location of patient: address on file Patient Identification confirmed using: Name, : Yes Telehealth method: voice only Patient verbally consented to treatment: Yes Patient verbally consented to billing insurance company: Yes Patient informed of any privacy concerns related to visit: Yes Minutes spent on Phone/Video with Pt.: 15 Assessment & Plan Assessment & Plan (1) S/P laparoscopic sleeve gastrectomy: Code(s): Z98.84 - Bariatric surgery status Category: Surgical Plan: Patient will get back on track. She was derailed briefly as she had increased depressive symptoms. These have improved and she started her stationary bike again this morning. She will continue to follow the meal plan, utilize the stationary bike daily. Plan on return to clinic as scheduled. Encouraged to text weekly with weights and if any questions or concerns.
[2023-12-08 11:09] VITALS: BMI 34.5
== END 2023-12-08 11:24 | disposition home or self-care (01) ==
LOC: HO.HBS 11:16
PROVIDERS: PCP Internal Medicine; Visit Provider Physician Assistant Surgical
DX: E66.9 Obesity, unspecified (principal); Z68.34 Body mass index [BMI] 34.0-34.9, adult; Z90.3 Acquired absence of stomach [part of]; Z98.84 Bariatric surgery status
CPT/HCPCS: 99213

== ENCOUNTER → 2023-12-08 11:16 | Outpatient (BNVA) | payer OTHER, SELFPAY | PROVIDERS: PCP Internal Medicine; Visit Provider Physician Assistant Surgical ==

== ENCOUNTER 2024-01-12 11:07 | Outpatient (AMB) | payer OTHER, SELFPAY ==
[2024-01-12 10:33] VITALS: BMI 32.8
--- NOTE | 2024-01-12 10:33 | A.OFFVIS_ITS ---
VS Expanded 01/12/24 10:33 Height 5 ft 3 in Weight 185 lb BMI 32.8 Intake Visit Reasons: (TV) PO LSG 08/01/23 Continuous Absorption Process Operator Required: No Allergies Sulfa (Sulfonamide Antibiotics) Allergy (Mild, Verified 08/23/23 13:49) Hives metoprolol Allergy (Verified 08/23/23 13:49) Rash Medication List - Last Reconciled 01/12/24 by MELVI Aldana albuterol sulfate 90 mcg/actuation (Ventolin HFA) 2 puffs inhalation QID PRN aripiprazole 2 mg PO DAILY atenolol 25 mg PO DAILY 90 days vsaxxzrxt-aepsntby-dqhgyat ala 30-120-15 mg (Biktarvy) 1 tab PO DAILY budesonide-formoterol 160-4.5 mcg/actuation (Symbicort) 2 puffs inhalation BID cetirizine (Zyrtec) 10 mg PO DAILY duloxetine 30 mg PO DAILY duloxetine 60 mg PO DAILY fexofenadine 60 mg PO DAILY flash glucose scanning reader (Lonely SockStyle Juanjose 2 [place]) As directed flash glucose sensor (FreeStyle Juanjose 2 Sensor kit) As directed fluticasone propionate 50 mcg/actuation 2 sprays intranasal DAILY gabapentin 300 mg PO DAILY gabapentin 600 mg PO BEDTIME hydroxyzine HCl 50 mg PO BEDTIME oxybutynin chloride ER 15 mg PO DAILY pravastatin 20 mg PO BEDTIME trazodone 50 mg PO BEDTIME PRN HPI Comments Details: his?a?63?yo female who is s/p LSG without hiatal hernia repair on?08/01/2023. Presents for 5 month post op visit. Weight today is 185 pounds, with a BMI of 32.8. There has been a 77.4 pound weight loss,(initial weight 262.4 pounds) since starting the program on 08/26/2022 reflecting a 29.4% total body weight loss and a weight loss of 51 pounds since surgery (operative weight 236 pounds) reflecting a 21.6% TBWL since surgery. No complaints of nausea, emesis, abdominal pain or reflux. Reports infrequent but normal bowel movements every 1- 2 days and uses stool softeners regularly. She states that she continues her meal plan. Taking bariatric MVI. Present meal plan includes: Using Orgain and 8 oz unsweetened almond milk 7-9 shake, 1 scoop 10-12 shake, 1 scoop 1-3 shake, 1 scoop 4-6 meal with 4 forks protein and 4 forks cooked vegetables 7-9 [place] yogurt. Drinking 96 oz water Exercise routine includes: stationary bike, 4-5 x week, 500-600 calories per day. [facility] Medical History GERD (gastroesophageal reflux disease) Stress incontinence Insulin dependent type 2 diabetes mellitus Neuropathy History of transfusion of packed red blood cells Arthritis Concussion Sleep apnea Asthma SOB (shortness of breath) Surgical History History of lumpectomy of right breast Hx of tracheostomy Hx of cataract surgery Hx of tonsillectomy Hx of appendectomy Family History Mother Diabetes Father No problems noted. Brother No problems noted. Brother No problems noted. Sister Thyroid disease Sister Heart disease Sister No problems noted. Sister No problems noted. Sister No problems noted. Daughter No problems noted. Daughter No problems noted. Daughter No problems noted. Son Thyroid disease Son No problems noted. Son No problems noted. Social History Household Members: None Housing: Apartment Are you a primary care companion to a significant other at home: No Do you presently have visiting nurse or other home services: Yes (medical sales associate's) Alcohol intake: never Patient Tobacco Use Status: Never used Tobacco service: No Telehealth Telehealth Telehealth Platform: Telephone Location of provider rendering services: practice address Location of patient: address on file Patient Identification confirmed using: Name, : Yes Telehealth method: voice only Patient verbally consented to treatment: Yes Patient verbally consented to billing insurance company: Yes Patient informed of any privacy concerns related to visit: Yes Minutes spent on Phone/Video with Pt.: 15 Assessment & Plan Assessment & Plan (1) S/P laparoscopic sleeve gastrectomy: Code(s): Z98.84 - Bariatric surgery status Category: Medical Plan: Patient is making good progress. She is following the meal plan. She was having people make negative comments to her and she is going to address this. She is happy with her progress and her weight loss. Encouraged to use the stationary bike as she is able when her knee shows improvement. Continue to text weekly. We will have her return to the office in approximately a month and check six-month postop labs at that time.
== END 2024-01-12 11:26 | disposition home or self-care (01) ==
LOC: HO.HBS 11:07
PROVIDERS: PCP Internal Medicine; Visit Provider Physician Assistant Surgical
DX: E66.9 Obesity, unspecified (principal); Z68.32 Body mass index [BMI] 32.0-32.9, adult; Z90.3 Acquired absence of stomach [part of]; Z98.84 Bariatric surgery status
CPT/HCPCS: 99213

== ENCOUNTER → 2024-01-12 11:07 | Outpatient (BNVA) | payer OTHER, SELFPAY | PROVIDERS: PCP Internal Medicine; Visit Provider Physician Assistant Surgical | DX: Z98.84 Bariatric surgery status (principal) ==

== ENCOUNTER 2024-02-23 12:56 | Outpatient (AMB) | payer OTHER, SELFPAY ==
--- NOTE | 2024-02-23 12:59 | MHC.OFFVISWM ---
VS Expanded 02/23/24 13:09 BP 141/88 H Blood Pressure Location Rt brachial Blood Pressure Position Sitting Pulse 82 Pulse Source Pulse Oximeter Temp 97.2 F Temperature Source Temporal Artery Scan Pulse Oximetry 95 Oxygen Delivery Method Room Air Height 5 ft 3 in Weight 183 lb BMI 32.4 Body Fat % 41.0 Body Fat Mass 75.0 Fat Free Mass 108.0 Visceral Fat Rating 11.0 Body Water % 41.8 Body Water Mass 76.6 Muscle Mass/Score 102.6 Basal Metabolic Rate/Score 1,486 Intake Visit Reasons: (OV) PO LSG 08/01/23 Window Cutter Required: No Allergies Sulfa (Sulfonamide Antibiotics) Allergy (Mild, Verified 02/23/24 13:07) Hives metoprolol Allergy (Verified 02/23/24 13:07) Rash Medication List - Last Reconciled 02/23/24 by MELVI Aldana albuterol sulfate 90 mcg/actuation (Ventolin HFA) 2 puffs inhalation QID PRN aripiprazole 2 mg PO DAILY atenolol 25 mg PO DAILY 90 days qnmlbtdcm-oqxlcllh-akjkifm ala 30-120-15 mg (Biktarvy) 1 tab PO DAILY budesonide-formoterol 160-4.5 mcg/actuation (Symbicort) 2 puffs inhalation BID cetirizine (Zyrtec) 10 mg PO DAILY duloxetine 30 mg PO DAILY duloxetine 60 mg PO DAILY fexofenadine 60 mg PO DAILY flash glucose scanning reader (FreeStyle Juanjose 2 [place]) As directed flash glucose sensor (FreeStyle Juanjose 2 Sensor kit) As directed fluticasone propionate 50 mcg/actuation 2 sprays intranasal DAILY gabapentin 300 mg PO DAILY gabapentin 600 mg PO BEDTIME hydroxyzine HCl 50 mg PO BEDTIME oxybutynin chloride ER 15 mg PO DAILY pravastatin 20 mg PO BEDTIME trazodone 50 mg PO BEDTIME PRN HPI Comments Details: This?a?63?yo female who is s/p LSG without hiatal hernia repair on?08/01/2023. Presents for 6 month post op visit. Weight today is 183 pounds, with a BMI of 32.4. There has been a 79.4 pound weight loss,(initial weight 262.4 pounds) since starting the program on 08/26/2022 reflecting a 30.2% total body weight loss and a weight loss of 53 pounds since surgery (operative weight 236 pounds) reflecting a 22.4% TBWL since surgery. No complaints of nausea, emesis, abdominal pain or reflux. Reports infrequent but normal bowel movements every 1-2 days and uses stool softeners regularly. She states that she has had some financial constraints and has been unable to afford the protein shakes. She has been drinking coffee instead.. Taking bariatric MVI. Present meal plan includes: Using Orgain and 8 oz unsweetened almond milk 7-9 shake, 1 scoop 10-12 shake, 1 scoop 1-3 shake, 1 scoop 4-6 meal with 4 forks protein and 4 forks cooked vegetables 7-9 [place] yogurt. Drinking 96 oz water Exercise routine includes: 4 x in the last month as she has had to watch her [employer] stationary bike, 4-5 x week, 500-600 calories per day. Any post op complications: none KRYSTIAN: improved DM: impoved HTN: improved Hyperlipidemia: improved GERD:?0-5 scale ??0 = no symptoms ??1 = symptoms noticeable but not bothersome 2 =symptoms bothersome but not daily ? 3 = symptoms bothersome and daily 4 = symptoms affect daily activities 5 = symptoms are incapacitating, unable to do daily activities ? How bad is the heartburn: 0 ? Heartburn while lying down: 0 ? Heartburn when standing up: 0 ? Heartburn after meals: 0 ? Does heartburn change your diet: 0 ? Does heartburn wake you up from sleep: 0 ? Do you have difficulty swallowin ? Do you have pain with swallowin ? If you take medicine for your reflux, does this affect your daily life: 0 Satisfaction with present condition - satisfied or not satisfied: dissatisfied [facility] Medical History (Updated 08/10/23 @ 00:01 by Maria Del Carmen Mireles) GERD (gastroesophageal reflux disease) Stress incontinence Insulin dependent type 2 diabetes mellitus Neuropathy Morbid obesity History of transfusion of packed red blood cells Arthritis Concussion Sleep apnea Asthma SOB (shortness of breath) Surgical History (Updated 02/23/24 @ 13:07 by Lacey Wen CMA) S/P laparoscopic sleeve gastrectomy History of lumpectomy of right breast Hx of tracheostomy Hx of cataract surgery Hx of tonsillectomy Hx of appendectomy Family History Mother Diabetes Father No problems noted. Brother No problems noted. Brother No problems noted. Sister Thyroid disease Sister Heart disease Sister No problems noted. Sister No problems noted. Sister No problems noted. Daughter No problems noted. Daughter No problems noted. Daughter No problems noted. Son Thyroid disease Son No problems noted. Son No problems noted. 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's) Alcohol intake: never Patient Tobacco Use Status: Never used Tobacco service: No Physical Exam Const General: cooperative and no acute distress Orientation/consciousness: patient oriented x3 Resp Effort & Inspection: normal respiratory effort Auscultation: clear to auscultation bilaterally Cardio Rate: regular rate Rhythm: regular rhythm GI Inspection: Yes normal to inspection and Yes incision (well healed) Palpation (GI): Soft to palpation and no masses Neuro General: patient oriented x3 Assessment & Plan Assessment & Plan (1) S/P laparoscopic sleeve gastrectomy: Code(s): Z98.84 - Bariatric surgery status Category: Surgical Plan: We will change shake to ensure max rtd half mixed with 6 oz of unsweetened almond milk at 07-9. Another at 11-1. Indian yogurt at 02-4. Meal with 5 forks of protein and 5 forks of vegetables. Fruit after dinner if needed including an apple or pear or an orange. Check six-month postop labs. Encouraged to text weekly and with any questions or concerns. Return to clinic 1 month. Orders: Orders Lipid Panel Today E11.9 - Type 2 diabetes mellitus without complications, E78.00 - Pure hypercholesterolemia, unspecified, I10 - Essential (primary) hypertension, K74.00 - Hepatic fibrosis, unspecified, Z79.4 - long term acute care registered nurse (current) use of insulin, Z98.84 - Bariatric surgery status Vitamin B12 and Folate Today E11.9 - Type 2 diabetes mellitus without complications, E78.00 - Pure hypercholesterolemia, unspecified, I10 - Essential (primary) hypertension, K74.00 - Hepatic fibrosis, unspecified, Z79.4 - shelter (current) use of insulin, Z98.84 - Bariatric surgery status C Reactive Protein Today E11.9 - Type 2 diabetes mellitus without complications, E78.00 - Pure hypercholesterolemia, unspecified, I10 - Essential (primary) hypertension, K74.00 - Hepatic fibrosis, unspecified, Z79.4 - long term acute care registered nurse (current) use of insulin, Z.84 - Bariatric surgery status Vitamin B1 Today E11.9 - Type 2 diabetes mellitus without complications, E78.00 - Pure hypercholesterolemia, unspecified, I10 - Essential (primary) hypertension, K74.00 - Hepatic fibrosis, unspecified, Z79.4 - long term acute care registered nurse (current) use of insulin, Z.84 - Bariatric surgery status Vitamin D 25-OH Total Today E11.9 - Type 2 diabetes mellitus without complications, E78.00 - Pure hypercholesterolemia, unspecified, I10 - Essential (primary) hypertension, K74.00 - Hepatic fibrosis, unspecified, Z79.4 - shelter (current) use of insulin, Z.84 - Bariatric surgery status Basic Metabolic Panel Today E11.9 - Type 2 diabetes mellitus without complications, E78.00 - Pure hypercholesterolemia, unspecified, I10 - Essential (primary) hypertension, K74.00 - Hepatic fibrosis, unspecified, Z79.4 - shelter (current) use of insulin, Z.84 - Bariatric surgery status Insulin Today E11.9 - Type 2 diabetes mellitus without complications, E78.00 - Pure hypercholesterolemia, unspecified, I10 - Essential (primary) hypertension, K74.00 - Hepatic fibrosis, unspecified, Z79.4 - shelter (current) use of insulin, Z98.84 - Bariatric surgery status Hemoglobin A1c Today E11.9 - Type 2 diabetes mellitus without complications, E78.00 - Pure hypercholesterolemia, unspecified, I10 - Essential (primary) hypertension, K74.00 - Hepatic fibrosis, unspecified, Z79.4 - shelter (current) use of insulin, Z.84 - Bariatric surgery status Complete Blood Count Auto Diff Today E11.9 - Type 2 diabetes mellitus without complications, E78.00 - Pure hypercholesterolemia, unspecified, I10 - Essential (primary) hypertension, K74.00 - Hepatic fibrosis, unspecified, Z79.4 - long term acute care registered nurse (current) use of insulin, Z98.84 - Bariatric surgery status IRON PROFILE Today E11.9 - Type 2 diabetes mellitus without complications, E78.00 - Pure hypercholesterolemia, unspecified, I10 - Essential (primary) hypertension, K74.00 - Hepatic fibrosis, unspecified, Z79.4 - long term acute care registered nurse (current) use of insulin, Z98.84 - Bariatric surgery status Zinc Today E11.9 - Type 2 diabetes mellitus without complications, E78.00 - Pure hypercholesterolemia, unspecified, I10 - Essential (primary) hypertension, K74.00 - Hepatic fibrosis, unspecified, Z79.4 - shelter (current) use of insulin, Z98.84 - Bariatric surgery status Vitamin A Today E11.9 - Type 2 diabetes mellitus without complications, E78.00 - Pure hypercholesterolemia, unspecified, I10 - Essential (primary) hypertension, K74.00 - Hepatic fibrosis, unspecified, Z79.4 - shelter (current) use of insulin, Z98.84 - Bariatric surgery status TSH reflex Free T4 Today E11.9 - Type 2 diabetes mellitus without complications, E78.00 - Pure hypercholesterolemia, unspecified, I10 - Essential (primary) hypertension, K74.00 - Hepatic fibrosis, unspecified, Z79.4 - shelter (current) use of insulin, Z98.84 - Bariatric surgery status Ferritin Today E11.9 - Type 2 diabetes mellitus without complications, E78.00 - Pure hypercholesterolemia, unspecified, I10 - Essential (primary) hypertension, K74.00 - Hepatic fibrosis, unspecified, Z79.4 - shelter (current) use of insulin, Z98.84 - Bariatric surgery status
[2024-02-23 13:09] VITALS: BP 141/88; PULSE 82; TEMP 36.2; O2SAT 95; BMI 32.4
== END 2024-02-23 13:27 | disposition home or self-care (01) ==
PROVIDERS: PCP Internal Medicine; Visit Provider Physician Assistant Surgical
DX: E66.811 Obesity, class 1 (principal); Z68.32 Body mass index [BMI] 32.0-32.9, adult; Z90.3 Acquired absence of stomach [part of]; Z98.84 Bariatric surgery status
CPT/HCPCS: 99214; G2211

== ENCOUNTER → 2024-02-23 12:56 | Outpatient (BNVA) | payer OTHER, SELFPAY | PROVIDERS: PCP Internal Medicine; Visit Provider Physician Assistant Surgical | DX: Z98.84 Bariatric surgery status (principal) | CPT/HCPCS: 99212 ==

== ENCOUNTER 2024-08-30 10:41 | Outpatient (AMB) | payer OTHER, SELFPAY ==
--- NOTE | 2024-08-30 10:57 | A.OFFVIS_ITS ---
VS Expanded 08/30/24 11:08 BP 129/73 Blood Pressure Location Rt brachial Blood Pressure Position Sitting Pulse 95 Pulse Source Pulse Oximeter Temp 97.4 F Temperature Source Temporal Artery Scan Pulse Oximetry 100 Oxygen Delivery Method Room Air Height 5 ft 3 in Weight 165 lb 3.2 oz BMI 29.3 Body Fat % 37.9 Body Fat Mass 62.6 Fat Free Mass 102.6 Visceral Fat Rating 10.0 Body Water % 43.8 Body Water Mass 72.4 Muscle Mass/Score 97.2 Basal Metabolic Rate/Score 1,399 Intake Visit Reasons: (OV) PO LSG 08/01/23 Allergies Sulfa (Sulfonamide Antibiotics) Allergy (Mild, Verified 08/30/24 11:01) Hives metoprolol Allergy (Verified 08/30/24 11:01) Rash HPI Comments Details: This?a?63?yo female who is s/p LSG without hiatal hernia repair on?08/01/2023. Presents for 1 year 1 month post op visit. Weight today is 165.2 pounds, with a BMI of 29.3. There has been a 97.2 pound weight loss,(initial weight 262.4 pounds) since starting the program on 08/26/2022 reflecting a 37% total body weight loss and a weight loss of 70.8 pounds since surgery (operative weight 236 pounds) reflecting a 30% TBWL since surgery. No complaints of nausea, emesis, abdominal pain or reflux. Reports infrequent but normal bowel movements every 1- 2 days and uses stool softeners regularly. Six-month labs were ordered in January. She did not get them done. Patient has excessive skin, especially of the arms given her 97 lb weight loss. The excess skin of her arms impacts her activities of daily living causing pain when she would wash her hair or brush her hair. Additionally when trying to put on a shirt over her head lifting her arms over her head due to the significant redundant skin of her arms causes pain. She has difficulty with clothing fitting appropriately given the excessive skin of her arms. She has not had any rashes to the axilla, but rather the impact on her activities of daily living is of greatest concern. She states that she has had some financial constraints and has been unable to afford the protein shakes. She has been drinking coffee instead.. Taking bariatric MVI. Present meal plan includes: Using Orgain and 8 oz unsweetened almond milk 7-9 shake, 1 scoop 10-12 shake, 1 scoop 1-3 shake, 1 scoop 4-6 meal with 4 forks protein and 4 forks cooked vegetables 7-9 [place] yogurt. Drinking 96 oz water Exercise routine includes: none in the last 3 months due to depression and personal matters. That has improved previously stationary bike, 4-5 x week, 500-600 calories per day. Any post op complications: none KRYSTIAN: improved DM: impoved HTN: improved Hyperlipidemia: improved GERD:?0-5 scale ??0 = no symptoms ??1 = symptoms noticeable but not bothersome 2 =symptoms bothersome but not daily ? 3 = symptoms bothersome and daily 4 = symptoms affect daily activities 5 = symptoms are incapacitating, unable to do daily activities ? How bad is the heartburn: 0 ? Heartburn while lying down: 0 ? Heartburn when standing up: 0 ? Heartburn after meals: 0 ? Does heartburn change your diet: 0 ? Does heartburn wake you up from sleep: 0 ? Do you have difficulty swallowin ? Do you have pain with swallowin ? If you take medicine for your reflux, does this affect your daily life: 0 Satisfaction with present condition - satisfied or not satisfied: satisfied with weight loss [facility] Medical History (Updated 08/30/24 @ 11:20 by MELVI Aldana) GERD (gastroesophageal reflux disease) Stress incontinence Insulin dependent type 2 diabetes mellitus Neuropathy Morbid obesity History of transfusion of packed red blood cells Arthritis Concussion Sleep apnea Asthma SOB (shortness of breath) Surgical History S/P laparoscopic sleeve gastrectomy History of lumpectomy of right breast Hx of tracheostomy Hx of cataract surgery Hx of tonsillectomy Hx of appendectomy Family History Mother Diabetes Father No problems noted. Brother No problems noted. Brother No problems noted. Sister Thyroid disease Sister Heart disease Sister No problems noted. Sister No problems noted. Sister No problems noted. Daughter No problems noted. Daughter No problems noted. Daughter No problems noted. Son Thyroid disease Son No problems noted. Son No problems noted. 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 She will continue her meal plan. We will have her return to the office in 4-6 weeks. Additionally, encouraged to get labs done. These were ordered back in January (2) Excess skin: Code(s): L98.7 - Excessive and redundant skin and subcutaneous tissue Category: Medical Plan: Patient has excess skin of bilateral arms. This has negatively impacted her ADLs in that she has pain and discomfort with overhead movements of her arms such as brushing her hair or washing her hair or putting on clothing. Given her significant weight loss, the excess skin of her arms has negatively impacted her ADLs as above and as a result she would be appropriate for medically necessary skin removal surgery. This should restore normal function of her arms and normal ADL return. We will have her return to the office in approximately 4-6 weeks and possibly submit to insurance for approval.
[2024-08-30 11:08] VITALS: BP 129/73; PULSE 95; TEMP 36.3; O2SAT 100; BMI 29.3
--- OUTSIDE RECORDS SUMMARY | 2024-08-30 11:48 | XMS_ITS | Continuity of Care Document ---
Author Organization [facility] y Address [address] [place] [address]- Care Team Providers Care Employment Agency Manager Name Role Phone Stephane MERCHANT, Teresita Jackson Primary Care Physician Encounter [facility] [place] Date(s): 07/25/24 - 08/24/24 [facility] [address], [place] [address] Attending Physician: Trung [id number] Admitting Physician: AdmtrDeborah Referring Physician: Admtr [id number] Encounter Type: Triage Allergies, Adverse Reactions, Alerts Substance Criticality Severity Reaction Reaction Severity Status zidovudine aplastic anemai Act terrell sulfADIAZINE Active metoprolol macular papular rash Active Peanuts rash Active Immunizations Given and Recorded Vaccine Date Status Refusal Reason influenza virus vaccine, inactivated 05/24/24 Give n influenza virus vaccine, inactivated 06/22/23 Give n influenza virus vaccine, inactivated 03/03/22 Give n influenza virus vaccine, inactivated 02/22/19 Give n influenza virus vaccine, inactivated 1 02/19/18 Gi shaneka influenza virus vaccine, inactivated 2 01/31/17 Gi shaneka influenza virus vaccine, inactivated 3 02/22/16 Gi shaneka influenza virus vaccine, inactivated 4 04/14/15 Gi shaneka influenza virus vaccine, inactivated 5 04/11/14 Gi shaneka influenza virus vaccine, inactivated 03/04/13 Give n influenza virus vaccine, inactivated 6 02/01/12 Gi shaneka influenza virus vaccine, inactivated 7 03/28/11 Gi shaneka pneumococcal 20-valent conjugate vaccine 06/22/23 Given zoster vaccine, inactivated 07/21/22 Given zoster vaccine, inactivated 03/04/22 Given tetanus/diphtheria/pertussis, acel(Tdap) 03/04/22 Given tetanus/diphtheria/pertussis, acel(Tdap) 8 09/06/10 Given SARS-CoV-2 (COVID-19) mRNA-1273 vaccine 09/11/20 R ecorded SARS-CoV-2 (COVID-19) mRNA-1273 vaccine 08/12/20 R ecorded hepatitis B adult vaccine 03/21/19 Recorded Meningococcal Conjugate Vaccine 07/17/18 Recorded pneumococcal 23-valent vaccine 04/06/17 Given pneumococcal 13-valent vaccine 9 12/29/16 Given Pneumococcal Vaccine (oldterm) 06/15/07 Given 1Admin Note: Influenza vaccine 2Admin Note: Influenza vaccine 3Admin Note: Influenza vaccine 4Admin Note: Influenza vaccine 5Admin Note: Influenza vaccine 6Admin Note: VIS 11/09 7Admin Note: VIS GIVEN [place] 2011-03 8Admin Note: VIS 03/08 STANDING ORDER 9Admin Note: Prevnar Medications acetaminophen 325 mg oral tablet 650 mg, 2, tablet, By Mouth, 3 times a day, PRN, not to exceed 3000 mg/day, # 540 tablet, Refills 3, Tot. Refills 3, Maintenance, for pain, 05/24/24 2:02:00 PM EST, Route to Pharmacy Electronically, [facility] #[id number], please cancel script for acetaminophen sent earlier on 09-11-2019, thank you, 160, cm, 05/24/24 13:35:00 EST, Height, 86, kg, 05/17/24 22:04:00 EST, Dry Weight Start Date: 05/24/24 Status: Ordered Quantity: 540.0 Unit: tablet Repeat number: 4 ARIPiprazole 5 mg oral tablet 5 mg, 1, tablet, By Mouth, Daily at bedtime, increase dose, change to nightly and discontinue quitiapine, # 30 tablet, Refills 4, Tot. Refills 4, Maintenance, 06/18/24 10:38:00 AM EST, Route to Pharmacy Electronically, [facility] #[id number], Partial fill upon patient request if the prescription is for a schedule II opioid drug., 160, cm, 06/18/24 9:10:00 EST, Height, 86, kg, 05/17/24 22:04:00 EST, Dry Weight Start Date: 06/18/24 Status: Ordered Quantity: 30.0 Unit: tablet Repeat number: 5 atenolol 25 mg oral tablet 25 mg, 1, tablet, By Mouth, Daily, # 90 tablet, Refills 3, Tot. Refills 3, Maintenance, 07/18/24 8:23:00 PM EDT, Route to Pharmacy Electronically, [facility] #[id number], Partial fill upon patient request if the prescription is for a schedule II opioid drug., 160, cm, 07/18/24 17:50:00 EDT, Height, 83.5, kg, 07/08/24 18:23:00 EDT, Dry Weight Start Date: 07/18/24 Stop Date: 07/13/25 Status: Ordered Quantity: 90.0 Unit: tablet Repeat number: 4 Bed Rails Bed Rails, See Instructions, # 2 each, Refills 0, Tot. Refills 0, Maintenance, Use as directed for safety while in bed; Dx: W19.XXXA. Z91.81; Duration: Lifetime, 05/24/24 4:29:00 PM EST, Supply Start Date: 05/24/24 Status: Ordered Quantity: 2.0 Unit: each Repeat number: 1 Biktarvy oral tablet 1 tablet, By Mouth, Daily, # 90 tablet, 0 Refills, Maintenance, 06/27/24 7:46:00 PM EST, Tablet, [facility] #[id number], Partial fill upon patient request if the prescription is for a schedule IIopioid drug., 1 tablet By Mouth Daily, 160, cm, 06/18/24 9:10:00 EST, Height, 86, kg, 05/17/24 22:04:00 EST, Dry Weight Start Date: 06/27/24 Status: Ordered Quantity: 90.0 Unit: tablet Repeat number: 1 diclofenac 1% topical gel 1 application, Topically, 4 times a day, 2g per application on elbow, wrist or hand; 4g per application on knee ankle or foot., # 100 Gm, 11 Refills, Maintenance, 05/24/24 2:01:00 PM EST, Gel, [facility] #[id number], Partial fill upon patient request if the prescription is for a schedule II opioid drug., 160, cm, 05/24/24 13:35:00 EST, Height, 86, kg, 05/17/24 22:04:00 EST, Dry Weight Start Date: 05/24/24 Status: Ordered Quantity: 100.0 Unit: g Repeat number: 12 duloxetine 30 mg oral enteric coated capsule 1 capsule = 30 mg, By Mouth, Daily, take 60mg capsule TDD=90mg, # 90 capsule, 3 Refills, Maintenance, 05/24/24 1:32:00 PM EST, Capsule, [facility] #[id number], Partial fill upon patient request if the prescription is for a schedule II opioid drug., 160, cm, 05/18/24 6:48:00 EST, Height, 86, kg,05/17/24 22:04:00 EST, Dry Weight Start Date: 05/24/24 Status: Ordered Quantity: 90.0 Unit: capsule Repeat number: 4 duloxetine 60 mg oral enteric coated capsule 1 capsule = 60 mg, By Mouth, Daily, take w/ 30mg capsule TDD=90mg, # 90 capsule, 3 Refills, Maintenance, 05/24/24 1:32:00 PM EST, Capsule, [facility] #[id number], Partial fill upon patient request if the prescription is for a schedule II opioid drug., 160, cm, 05/18/24 6:48:00 EST, Height, 86, kg, 05/17/24 22:04:00 EST, Dry Weight Start Date: 05/24/24 Status: Ordered Quantity: 90.0 Unit: capsule Repeat number: 4 Farxiga 10 mg oral tablet TAKE 1 TABLET BY MOUTH DAILY Start Date: 07/11/24 Status: Ordered Repeat number: 1 Flonase Allergy Relief 50 mcg/inh nasal spray 2 sprays = 100 mcg, Nares, Both, Daily, shake well before using, # 3 each, 3 Refills, Maintenance, 05/24/24 1:37:00 PM EST, [place], [facility] #[id number], Partial fill upon patient request if theprescription is for a schedule II opioid drug., 160, cm, 05/24/24 13:35:00 EST, Height, 86, kg, 05/17/24 22:04:00 EST, Dry Weight Start Date: 05/24/24 Status: Ordered Quantity: 3.0 Unit: each Repeat number: 4 gabapentin 300 mg oral capsule See Instructions, TAKE 1 CAPSULE BY MOUTH EVERY MORNING AND TAKE 2 CAPSULES BY MOUTH EVERY NIGHT ATBEDTIME, # 270 capsule, Refills 3, Maintenance, 08/06/24 3:23:00 PM EDT, Instructions Replace Required Details, Route to Pharmacy Electronically, [facility] #[id number], 160, cm, 07/25/24 10:15:00EDT, Height, 83.5, kg, 07/08/24 18:23:00 EDT, Dry Weight Start Date: 08/06/24 Status: Ordered Quantity: 270.0 Unit: capsule Repeat number: 1 hydrOXYzine hydrochloride 50 mg oral tablet 1 tablet = 50 mg, By Mouth, Daily at bedtime, PRN as needed, # 90 tablet, 3 Refills, Maintenance, 05/24/24 1:32:00 PM EST, Tablet, [facility] #[id number], Partial fill upon patient request if theprescription is for a schedule II opioid drug., 160, cm, 05/18/24 6:48:00 EST, Height, 86, kg, 05/17/24 22:04:00 EST, Dry Weight Start Date: 05/24/24 Status: Ordered Quantity: 90.0 Unit: tablet Repeat number: 4 Insulin Aspart FlexPen 100 units/mL injectable solution See Instructions, 100 - 149 7 units Call if less than 70 150 - 199 8 units 200 - 249 9 units 250 - 299 10 units 300 - 349 11 units 350 - 399 12 units Call if greater than 400 << Sliding Scale Comments >>, # 90 each, 11 Refills, Maintenance, 03/12/24 1:07:00 PM EST, [facility] #[id number], Partial fill upon patient request if the prescription is for a schedule II opioid drug., 178, cm, 02/14/24 17:53:00 EDT, Height, 79.4, kg, 10/11/23 15:08:00 EDT, Dry Weight Start Date: 03/12/24 Status: Ordered Quantity: 90.0 Unit: each Repeat number: 12 Lantus Solostar Pen 100 units/mL subcutaneous solution = 20 units, Subcutaneous Injection, Daily, # 90 each, 3 Refills, Maintenance, 05/24/24 2:09:00 PM EST, Solution, [facility] #[id number], bulgarian label please. this is dose increase, 160, cm, 05/24/24 13:35:00 EST, Height, 86, kg, 05/17/24 22:04:00 EST, Dry Weight Start Date: 05/24/24 Stop Date: 05/19/25 Status: Ordered Quantity: 90.0 Unit: each Repeat number: 4 Lidoderm 5% film 2 patch, Topically, Daily, remove patches after 12 hours; 2 patches to pain areas; can cut patches in half; do not excede 2 patches., # 60 patch, 11 Refills, Maintenance, 05/24/24 2:01:00 PM EST, [facility] #[id number], Partial fill upon patient request if the prescription is for a schedule II o pioid drug., 2 patch Topically Daily,x30 days,Instr:remove patches after 12 hours; 2 patches to pain areas; can cut patches in half; do not excede 2 patches., 160, cm, 05/24/24 13:35:00 EST, Height, 86, kg, 05/17/24 22:04:00 EST, Dry Weight Start Date: 05/24/24 Stop Date: 05/19/25 Status: Ordered Quantity: 60.0 Unit: patch Repeat number: 12 metFORMIN 500 mg oral tablet 2 tablet = 1,000 mg, By Mouth, 2 times a day with meals, # 360 tablet, 3 Refills, Maintenance, 05/24/24 1:33:00 PM EST, Tablet, [facility] #[id number], Partial fill upon patient request if the prescription is for a schedule II opioid drug., 160, cm, 05/18/24 6:48:00 EST, Height, 86, kg, 05/17/24 22:04:00 EST, Dry Weight Start Date: 05/24/24 Status: Ordered Quantity: 360.0 Unit: tablet Repeat number: 4 ondansetron 4 mg oral tablet, disintegrating 1 tablet = 4 mg, By Mouth, 3 times a day, PRN Nausea & Vomiting, # 30 tablet, 1 Refills, Maintenance, 05/09/24 3:36:00 PM EST, Tablet, [facility] #[id number], Partial fill upon patient requestif the prescription is for a schedule II opioid drug., 160, cm, 05/08/24 13:51:00 EST, Height, 86, kg, 04/26/24 0:23:00 EST, Dry Weight Start Date: 05/09/24 Status: Ordered Quantity: 30.0 Unit: tablet Repeat number: 2 oxybutynin 15 mg/24 hr oral tablet, extended release 1 tablet = 15 mg, By Mouth, Daily, # 90 tablet, 3 Refills, Maintenance, 05/24/24 2:08:00 PM EST, ER Tablet, [facility] #[id number], Partial fill upon patient request if the prescription is for a schedule II opioid drug., 160, cm, 05/24/24 13:35:00 EST, Height, 86, kg, 05/17/24 22:04:00 EST, DryWeight Start Date: 05/24/24 Status: Ordered Quantity: 90.0 Unit: tablet Repeat number: 4 pravastatin 20 mg oral tablet 20 mg, 1, tablet, By Mouth, Daily, # 90 tablet, Refills 3, Tot. Refills 3, Maintenance, 05/24/24 2:08:00 PM EST, Route to Pharmacy Electronically, [facility] #[id number], Partial fill upon patient request if the prescription is for a schedule II opioid drug., 160, cm, 05/24/24 13:35:00 EST, Height, 86, kg, 05/17/24 22:04:00 EST, Dry Weight Start Date: 05/24/24 Status: Ordered Quantity: 90.0 Unit: tablet Repeat number: 4 prazosin 5 mg oral capsule 5 mg, 1, capsule, By Mouth, Daily at bedtime, increase dose, # 30 capsule, Refills 4, Tot. Refills 4, Maintenance, 06/18/24 10:40:00 AM EST, Route to Pharmacy Electronically, [facility] #[id number], Partial fill upon patient request if the prescription is for a schedule II opioid drug., 160, cm, 06/18/24 9:10:00 EST, Height, 86, kg, 05/17/24 22:04:00 EST, Dry Weight Start Date: 06/18/24 Status: Ordered Quantity: 30.0 Unit: capsule Repeat number: 5 Symbicort 160mcg/4.5mcg Inhaler 2, puffs, Inhalation, 2 times a day, # 3 each, Refills 3, Tot. Refills 3, Maintenance, 05/24/24 2:01:00 PM EST, Aerosol, Route to Pharmacy Electronically, [id number], [facility] #[id number], d/c flovent, 160, cm, 05/24/24 13:35:00 EST, Height, 86, kg, 05/17/24 22:04:00EST, Dry Weight Start Date: 05/24/24 Status: Ordered Quantity: 3.0 Unit: each Repeat number: 4 traZODone 50 mg oral tablet 100 mg, 2, tablet, By Mouth, Daily at bedtime, PRN, # 180 tablet, Refills 3, Tot. Refills 3, Maintenance, Insomnia, 05/24/24 1:33:00 PM EST, Route to Pharmacy Electronically, [facility] #[id number], Partial fill upon patient request if the prescription is for a schedule II opioid drug., 160, cm, 05/18/24 6:48:00 EST, Height, 86, kg, 05/17/24 22:04:00 EST, Dry Weight Start Date: 05/24/24 Status: Ordered Quantity: 180.0 Unit: tablet Repeat number: 4 Ventolin HFA 108 mcg/inh inhalation aerosol with adapter 2 inhalation = 180 mcg, By Mouth, 4 times a day, PRN Wheezing/Shortness of Breath, # 3 each, 3 Refills, Maintenance, 05/24/24 1:32:00 PM EST, Inhaler, [facility] #[id number], Partial fill upon patient request if the prescription is for a schedule II opioid drug., 160, cm, 05/18/24 6:48:00 EST, H eight, 86, kg, 05/17/24 22:04:00 EST, Dry Weight Start Date: 05/24/24 Stop Date: 05/19/25 Status: Ordered Quantity: 3.0 Unit: each Repeat number: 4 Vitamin B1 100 mg oral tablet 100 mg, 1, tablet, By Mouth, Daily, # 90 tablet, Refills 3, Tot. Refills 3, Maintenance, 05/24/24 1:33:00 PM EST, Route to Pharmacy Electronically, [facility] #[id number], Partial fill upon patient request if the prescription is for a schedule II opioid drug., 160, cm, 05/18/24 6:48:00 EST, Height, 86, kg, 05/17/24 22:04:00 EST, Dry Weight Start Date: 05/24/24 Status: Ordered Quantity: 90.0 Unit: tablet Repeat number: 4 Problem List Condition Confirmation Course Effective Dates Status H ealth Status Informant Allergic rhinitis Confirmed Active Angioedema 1 Confirmed Active Asthma - PFTs mild obstructive 2020 2, 3 Confirmed Active Breast lumpectomy 4 Confirmed 07/08/09 Active CKD (chronic kidney disease) Confirmed Active CKD (chronic kidney disease) stage 2, GFR 60-89 ml/min Confirmed Active Diabetes mellitus Confirmed Active Diastolic dysfunction Confirmed Active Abnormal echocardiogram - HEpEF Confirmed Active HIV disease Confirmed Active Hyperlipidemia Confirmed Active Hypertension Confirmed Active Imbalance Confirmed Active Left knee pain Confirmed Active LBP - Low back pain Confirmed Active mammogram 5 Confirmed 06/04/09 Active Multinodular goiter Confirmed Active 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 Follow[facility] Almonte [facility] 3difficulty with showering, housecleaning, grocery shopping, laundry 4Rt breast. [facility] 5[facility] at [facility].-- pt needs additional imaging evalution 6EMB and Hysteroscopy by Dr Seo 06/10. Evidence of low grade dysplasia. Social History Social History Type Response Smoking Status Never smoker entered on: 07/25/13 Sex Sex Representation Female (finding) Patient Care team information Care Team Personnel Name: Sirisha Ortez RN Position: S RN Member Role: Primary Care Nurse Name: Perla Thomason RN Position: S RN Member Role: Primary Care Nurse Name: Delmy Almendarez RN Position: S RN Member Role: Primary Care Nurse Name: Emily Wolfe RN Position: S RN Member Role: Primary Care Nurse Name: Teresita Calderón MD Position: [facility] Physician - Primary Care Member Role: PCP Address: [address] [facility] [place] [address]- [place] [employer]: Name: Delilah Romero RN Position: [facility] RN Member Role: Primary Care Nurse Name: Lacie Sepulveda NP Position: [facility] PCO Associate Professional Member Role: Primary Care Nurse Address: [address] [place] [address]- [place] [employer]: Name: Kelsey Osullivan RN Position: [facility] RN Member Role: Primary Care Nurse Name: Edita Gregorio RN Position: [facility] RN Member Role: Primary Care Nurse Name: Franki Newberry RN Position: [facility] RN Member Role: Primary Care Nurse Name: Korin Hickman LPN Position: [facility] RN Member Role: Primary Care Nurse Name: Ashley Guillaume RN Position: [facility] RN Member Role: Primary Care Nurse Care Team Related Persons Name: SELIN REILLY Name: ARTURO HOFFMAN Name: ANNA WRIGHT Insurance Providers Guarantor name: NA Health Plan Information #: 1 Payer: [employer] Member Number: NA Policy Number: NA Group Number: NA Health Plan Information #: 2 Payer: [facility] Member Number: NA Policy Number: NA Group Number: NA
--- OUTSIDE RECORDS SUMMARY | 2024-08-30 11:48 | XMS_ITS | Clinical Summary ---
Author Organization [facility] [address] [place] [address] [place] [phone] Phone Care Team Providers Care Data Management Associate Name Role Phone Teresita Calderón MD Primary Care Provider [phone] Medications Trulicity 1.5 mg/0.5 mL pen injector injection Inject 0.5 mL (1.5 mg total) under the skin 1 (one) time per week. Active metFORMIN (GLUCOPHAGE) 500 mg tablet Take 2 tablets (1,000 mg total) by mouth 2 (two) times a day with meals. Active dextrose (glucose) 2 gram tablet,chewabl e Chew 4 tablets 1 (one) time each day if needed. Take 4 Tablets by mouth as needed for Other (low blood sugar). 4 Active insulin lispro (HumaLOG KwikPen) 100 unit/mL injection pen Inject 1-4 Units under the skin 3 (three) times a day before meals. Inject 1-4 Units into the skin 3 times daily (with meals). Use three times a day before meals: 200-250: 1 units, 251-300: 2 units, 301-350: 3 units, >351: 4 units. - Subcutaneous Active multivitamin (MULTIPLE VITAMINS ORAL) Take by mouth. 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 4 Active glucagon (Baqsimi) 3 mg/actuation nasal spray Administer 3 mg into one nostril if needed. 1 Dose by Nasal route as needed for Other (hypoglycemia). 3 Active fexofenadine (IRA) 60 mg tablet Take 1 tablet (60 mg total) by mouth 1 (one) time each day. Active acetaminophen (TYLENOL) 325 mg tablet Take 2 tablets (650 mg total) by mouth 3 (three) times a day if needed. TAKE 2 TABLETS BY MOUTH THREE TIMES DAILY NEEDED FOR PAIN DO NOT EXCEED 3000 MG PER DAY Active flunisolide (NASALIDE) 25 mcg (0.025 %) spray,non-aero all Administer into affected nostril(s). Active Biktarvy 50-200-25 mg per tablet Take 1 tablet by mouth 1 (one) time each day. Active pravastatin (PRAVACHOL) 20 mg tablet Take 1 tablet (20 mg total) by mouth 1 (one) time each day. Active traZODone (DESYREL) 50 mg tablet Take 1 tablet (50 mg total) by mouth at bedtime as needed. Active gabapentin (NEURONTIN) 300 mg capsule Take 2 capsules (600 mg total) by mouth at bedtime. Active valsartan-hydr oCHLOROthiazid e (DIOVAN-HCT) 160-12.5 mg per tablet Take 1 tablet by mouth 1 (one) time each day. Active hydrOXYzine HCL (ATARAX) 25 mg tablet Take 1 tablet (25 mg total) by mouth 3 (three) times a day if needed. Active amitriptyline (ELAVIL) 25 mg tablet Take 1 tablet (25 mg total) by mouth at bedtime. Active ARIPiprazole (ABILIFY) 2 mg tablet Take 1 tablet (2 mg total) by mouth 1 (one) time each day. for depression Active prazosin (MINIPRESS) 5 mg capsule Take 1 capsule (5 mg total) by mouth at bedtime. Active DULoxetine (CYMBALTA) [address] capsule Take 1 capsule (60 mg total) by mouth 1 (one) time each day. Active oxyBUTYnin XL (DITROPAN-XL) 15 mg 24 hr tablet Take 1 tablet (15 mg total) by mouth 1 (one) time each day. Active BD Ultra-Fine Mini Pen Needle 31 gauge x 3/16 needle 1 each by Other route 4 (four) times a day. 4 Active Dexcom G7 Sensor device 1 EA by Other route See administration instructions. Change sensor every 10 days 3 each 4 Active Social History Tobacco Use Types Packs/Day Years Used Date Smoking Tobacco: Never Smokeless Tobacco: Never Comments Unknown Sex and Gender Information Value Date Recorded Sex Assigned at Not on file Legal Sex Female 4:51 AM EST Gender Identity Not on file Sexual Orientation Not on file Obstetrics History Last Filed Vital Signs Vital Sign Reading Time Taken Comments Blood Pressure 140/93 12/13/2023 1:[address] rage Pulse 92 12/13/2023 1:08 PM EDT Temperature - - Respiratory Rate - - Oxygen Saturation - - Inhaled Oxygen Concentration - - Weight 86.2 kg (190 lb) 12/13/2023 1:08 PM EDT Height 160 cm (5' 3 ) 12/13/2023 1:08 PM EDT Body Mass Index 33.66 12/13/2023 1:08 PM EDT Plan of Treatment Health Maintenance Due Date Last Done Comments Breast Cancer Screening 1961 Diabetes: Annual Foot Exam 1971 Diabetes: Annual Retina Eye Exam 1971 MMR Vaccines (1 of 2 - Risk 2-dose series) 1979 Hepatitis A Vaccines (1 of 2 - Risk 2-dose series) 1980 Cervical Cancer Screening: Pap Smear 1982 Meningococcal ACWY Vaccine (2 - Risk 2-dose series) 09/11/2018 07/17/2018 Hepatitis B Vaccines (2 of 3 - Risk 3-dose series) 04/18/2019 03/21/2019 COVID-19 Vaccine (3 - Moderna risk series) 10/09/2020 09/11/2020, 08/12/2020 RSV Immunization Adult Patients (1 - Risk 60-74 years 1-dose series) 2021 Depression Screening 04/10/2022 Diabetes: Annual Urine Albumin-Creatinine Ratio (uACR) 04/10/2022 Hepatitis C Screening 04/10/2022 Social Influencers of Health Screening 04/10/2022 Diabetes: Blood Sugar Control Test (HGBA1C) 06/14/2024 12/13/2023, 09/12/2023 Diabetes: Annual GFR (Glomerular Filtration Rate) 09/11/2024 09/12/2023 Hypertension/CHF/CAD Annual BMP Blood Test 09/11/2024 09/12/2023 Influenza Vaccine (Season Ended) 2024 06/22/2023, 03/03/2022, 02/22/2019, Additional history exists Colorectal Cancer Screening: FIT-DNA (Cologuard) 09/12/2026 09/13/2023, 09/13/2023 Cholesterol Screening (Lipid Panel) 09/11/2028 09/12/2023 DTaP,Tdap,and Td Vaccines (3 - Td or Tdap) 03/04/2032 03/04/2022, 09/06/2010 Zoster Vaccines Completed 07/21/2022, 03/04/2022 Pneumococcal Vaccine: 50+ Years Completed 06/22/2023, 04/06/2017, 12/29/2016, Additional history exists Pneumococcal Vaccine: Pediatrics (0 to 5 Years) and At-Risk Patients (6 to 64 Years) Completed 06/22/2023, 04/06/2017, 12/29/2016, Additional history exists HIB Vaccines Aged Out No longer eligi ble based on patient's age to complete this topic HPV Vaccines Aged Out No longer eligi ble based on patient's age to complete this topic IPV Vaccines Aged Out No longer eligi ble based on patient's age to complete this topic Meningococcal B Vaccine Aged Out No l onger eligible based on patient's age to complete this topic RSV Immunization Patients Under 20 months Aged Out No longer eligible based on patient's age to complete this topic Varicella Vaccines Aged Out No longer eligible based on patient's age to complete this topic Insurance [facility] Care Teams Data Management Associate Relationship Specialty Start Date End Date Teresita Calderón MD PCP - General Internal Medicine 01/07/22
--- OUTSIDE RECORDS SUMMARY | 2024-08-30 11:48 | XMS_ITS | Clinical Summary ---
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 Role Phone Unavailable Primary Care Provider Unavailabl e Social History Tobacco Use Types Packs/Day Years Used Date Smoking Tobacco: Never Assessed Comments Unknown Sex and Gender Information Value Date Recorded Sex Assigned at Not on file Legal Sex Female 10:09 AM EDT Gender Identity Not on file Sexual Orientation Not on file Plan of Treatment Health Maintenance Due Date Last Done Comments Breast Cancer Screening 1961 Colorectal Cancer Screening: Annual FOBT 2010 Colorectal Cancer Screening: Colonoscopy 2010 Colorectal Cancer Screening: Sigmoidoscopy 2010 Hepatitis B Vaccine (1 of 3 - Risk 3-dose series) 2021 03/21/2019 Diabetes: Hemoglobin A1C 01/15/2022 Diabetes: Ophthalmology Exam 01/15/2022 Diabetes: Pedal Pulse Checked 01/15/2022 Diabetes: Sensory Foot Exam 01/15/2022 Diabetes: Visual Foot Exam 01/15/2022 Pneumococcal Vaccine: 50+ Ye ars (4 of 4 - PCV20 or PCV21) 04/06/2022 04/06/2017, 12/29/2016, 06/15/2007 Influenza Vaccine (Season Ended) 2024 Pneumococcal Vaccine: Peds ( 0 to 5 Years) and At-Risk Patients (6 to 49 Years) Discontinued 04/06/2017, 12/29/2016, 06/15/2007 Insurance [facility] Medicaid [facility] Medicaid
== END 2024-08-30 11:24 | disposition home or self-care (01) ==
LOC: HO.HBS 10:42
PROVIDERS: PCP Internal Medicine; Visit Provider Physician Assistant Surgical
DX: L98.7 Excessive and redundant skin and subcutaneous tissue (principal); Z98.84 Bariatric surgery status
CPT/HCPCS: 99213; G2211

== ENCOUNTER → 2024-08-30 10:41 | Outpatient (BNVA) | payer OTHER, SELFPAY | PROVIDERS: PCP Internal Medicine; Visit Provider Physician Assistant Surgical | DX: L98.7 Excessive and redundant skin and subcutaneous tissue (principal); Z98.84 Bariatric surgery status | CPT/HCPCS: 99212 ==

== ENCOUNTER 2024-09-24 10:48 | Outpatient (AMB) | payer OTHER, SELFPAY ==
--- NOTE | 2024-09-24 10:50 | A.OFFVIS_ITS ---
VS Expanded 09/24/24 11:04 BP 137/79 Blood Pressure Location Rt brachial Blood Pressure Position Sitting Pulse 126 H Pulse Source Pulse Oximeter Temp 95.6 F L Temperature Source Temporal Artery Scan Pulse Oximetry 95 Oxygen Delivery Method Room Air Height 5 ft 3 in Weight 162 lb BMI 28.7 Body Fat % 40.9 Body Fat Mass 66.2 Fat Free Mass 95. Visceral Fat Rating 10.0 Body Water % 41.7 Body Water Mass 67.4 Muscle Mass/Score 90.8 Basal Metabolic Rate/Score 1,325 Intake Visit Reasons: OV F/U Emergency Dept. 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: No Allergies Sulfa (Sulfonamide Antibiotics) Allergy (Mild, Verified 09/24/24 10:58) Hives metoprolol Allergy (Verified 09/24/24 10:58) Rash Medication List - Last Reconciled 09/24/24 by MELVI Aldana albuterol sulfate 90 mcg/actuation (Ventolin HFA) 2 puffs inhalation QID PRN aripiprazole 2 mg PO DAILY atenolol 25 mg PO DAILY 90 days vnblswqam-gbfsvujg-eifeqdk ala 30-120-15 mg (Biktarvy) 1 tab PO DAILY budesonide-formoterol 160-4.5 mcg/actuation (Symbicort) 2 puffs inhalation BID cetirizine (Zyrtec) 10 mg PO DAILY duloxetine 30 mg PO DAILY duloxetine 60 mg PO DAILY fexofenadine 60 mg PO DAILY flash glucose scanning reader (SunpremeStyle Juanjose 2 Gilson) As directed flash glucose sensor (FreeStyle Juanjose 2 Sensor kit) As directed fluticasone propionate 50 mcg/actuation 2 sprays intranasal DAILY gabapentin 300 mg PO DAILY gabapentin 600 mg PO BEDTIME hydroxyzine HCl 50 mg PO BEDTIME oxybutynin chloride ER 15 mg PO DAILY pravastatin 20 mg PO BEDTIME trazodone 50 mg PO BEDTIME PRN HPI Comments Details: This?a?64?yo female who is s/p LSG without hiatal hernia repair on?08/01/2023. Presents for 1 year 1.5 month post op visit. Weight today is 162 pounds, with a BMI of 28.7. There has been a 100.4 pound weight loss,(initial weight 262.4 pounds) since starting the program on 08/26/2022 reflecting a 38.2% total body weight loss and a weight loss of 74 pounds since surgery (operative weight 236 pounds) reflecting a 31.3% TBWL since surgery. No complaints of nausea, emesis, abdominal pain or reflux. Reports infrequent but normal bowel movements every 1- 2 days and uses stool softeners regularly. Six-month labs were ordered in January. She did not get them done. Patient was admitted to [facility], 09/05/2024 through 09/07/2024. Diagnosis was nausea vomiting and diarrhea. This was noted to be after exposure of a gastroenteritis from her grandchildren. Symptoms resolved, diet was advanced and she was discharged home. She was also found to have pyuria and given empiric treatment with IV Rocephin. No further antibiotics were needed after completing 3 days of IV antibiotics. CT scan showed no evidence of bowel obstruction however small type 3 paraesophageal hernia. She states that she has no further nausea and vomiting however does have discomfort in her upper chest/upper abdomen with eating solid foods and sometimes liquids. Patient has excessive skin, especially of the arms given her 97 lb weight loss. The excess skin of her arms impacts her activities of daily living causing pain when she would wash her hair or brush her hair. Additionally when trying to put on a shirt over her head lifting her arms over her head due to the significant redundant skin of her arms causes pain. She has difficulty with clothing fittin g appropriately given the excessive skin of her arms. She has not had any rashes to the axilla, but rather the impact on her activities of daily living is of greatest concern. Taking bariatric MVI. Present meal plan includes: Using Orgain and 8 oz unsweetened almond milk 7-9 shake, 1 scoop ( drinking over 1 hour instead of 2) 10-12 shake, 1 scoop 1-3 shake, 1 scoop 4-6 meal with 4 forks protein and 4 forks cooked vegetables 7-9 sinhala yogurt. Drinking 64 oz water Exercise routine includes: none in the last 2 months due to depression and personal matters. previously stationary bike, 4-5 x week, 500-600 calories per day. FOR[facility]LY [facility], [facility] Medical History GERD (gastroesophageal reflux disease) Stress incontinence Insulin dependent type 2 diabetes mellitus Neuropathy Morbid obesity History of transfusion of packed red blood cells Arthritis Concussion Sleep apnea Asthma SOB (shortness of breath) Surgical History S/P laparoscopic sleeve gastrectomy History of lumpectomy of right breast Hx of tracheostomy Hx of cataract surgery Hx of tonsillectomy Hx of appendectomy Family History Mother Diabetes Father No problems noted. Brother No problems noted. Brother No problems noted. Sister Thyroid disease Sister Heart disease Sister No problems noted. Sister No problems noted. Sister No problems noted. Daughter No problems noted. Daughter No problems noted. Daughter No problems noted. Son Thyroid disease Son No problems noted. Son No problems noted. Social History Household Members: None Housing: Apartment Are you a primary sub acute care nurse to a significant other at home: No Do you presently have visiting nurse or other home services: Yes (data integrity specialist's) Alcohol intake: never Patient Tobacco Use Status: Never used Tobacco service: No Physical Exam Const General: healthy appearing and no acute distress Resp Effort & Inspection: normal respiratory effort Auscultation: clear to auscultation bilaterally Cardio Rate: regular rate Rhythm: regular rhythm GI Auscultation: normal bowel sounds Extrem General: Yes normal to inspection Assessment & Plan Assessment & Plan (1) S/P laparoscopic sleeve gastrectomy: Code(s): Z98.84 - Bariatric surgery status Category: Surgical Plan: Patient encouraged to drink her shake slowly over the 2 hour period as recommended. Additionally, strongly encouraged to return to the gym and start exercising again. Records from her admission at [facility] were reviewed. I will have Dr. Carrasco review the CT scan to determine if an upper endoscopy is warranted. The patient will text me with the outcome of adhering to the diet as written. We will have her return to the office in approximately 1 month, sooner should there be any problems or concerns.
[2024-09-24 11:04] VITALS: BP 137/79; PULSE 126; TEMP 35.3; O2SAT 95; BMI 28.7
--- OUTSIDE RECORDS SUMMARY | 2024-09-24 11:37 | XMS_ITS | Continuity of Care Document ---
Author Organization [facility] Address [address] [place] [address]- Care Team Providers Care Fiber Artist Name Role Phone Teresita Calderón MD Primary Care Physician Encounter [facility] Date(s): 05/24/24 - 09/21/24 [facility] [address] [place] [phone] Attending Physician: Teresita Calderón MD Admitting Physician: Teresita Calderón MD Encounter Type: Pre-OutPatient One Time Allergies, Adverse Reactions, Alerts Substance Criticality Severity [...] Note: VIS 11/09 7Admin Note: VIS GIVEN Yemeni 2011-03 8Admin Note: VIS 03/08 STANDING ORDER 9Admin Note: Prevnar Medications acetaminophen 325 mg oral tablet 650 mg, 2, tablet, By Mouth, 3 times a day, PRN, not to exceed 3000 mg/day, # 540 tablet, Refills 3, Tot. Refills 3, Maintenance, for pain, 05/24/24 2:02:00 PM EST, Route to Pharmacy Electronically, [email or web address][id number], please cancel script for acetaminophen sent earlier [...] 10:38:00 AM EST, Route to Pharmacy Electronically, [email or web address] #[id number], Partial fill upon patient request if the prescription is for a schedule II opioid drug., 160, cm, 02/18/25 9:10:00 EST, Height, 86, kg, 05/17/24 22:04:00 EST, Dry Weight Start Date: 06/18/24 Status: Ordered Quantity: 30.0 Unit: tablet Repeat number: 5 atenolol 25 mg oral tablet 25 mg, 1, tablet, By Mouth, Daily, # 90 tablet, Refills 3, Tot. Refills 3, Maintenance, 07/18/24 8:23:00 PM EDT, Route to Pharmacy Electronically, [email or web address] #[id number], Partial fill upon patient request if the prescription is for a schedule II opioid drug., 160, cm, 07/18/24 17:50:00 EDT, Height, 83.5, kg, 07/08/24 18:23:00 EDT, Dry Weight Start Date: 07/18/24 Stop Date: 07/13/25 Status: Ordered Quantity: 90.0 Unit: tablet Repeat number: 4 baclofen 5 mg oral tablet 1 tablet = 5 mg, By Mouth, 3 times a day, PRN esophegeal pain, # 90 tablet, 4 Refills, Maintenance,09/19/24 4:11:00 PM EDT, Tablet, [email or web address] #[email or web address], Partial fill upon patient request if the prescription is for a schedule II opioid drug., 160, cm, 09/19/24 14:54:00 EDT, Height, 73.5, kg,09/05/24 7:22:00 EDT, Dry Weight Start Date: 09/19/24 Status: Ordered Quantity: 90.0 Unit: tablet Repeat number: 5 Biktarvy oral tablet 1 tablet, By Mouth, Daily, # 90 tablet, 0 Refills, Maintenance, 06/27/24 7:46:00 PM EST, Tablet, [email or web address] #[id number], Partial fill upon patient request if the prescription is for a schedule IIopioid drug., 1 tablet By Mouth Daily, 160, cm, 06/18/24 9:10:00 EST, Height, 86, kg, 05/17/24 22:04:00 EST, Dry Weight Start Date: 06/27/24 Status: Ordered Quantity: 90.0 Unit: tablet Repeat number: 1 Biktarvy oral tablet See Instructions, TAKE 1 TABLET BY MOUTH DAILY, # 90 tablet, 1 Refills, Maintenance, 09/19/24 4:14:00 PM EDT, [email or web address] #[id number], 90, TAKE 1 TABLET BY MOUTH DAILY, 160, cm, 09/19/24 14:54:00 EDT, Height, 73.5, kg, 09/05/24 7:22:00 EDT, Dry Weight Start Date: 09/19/24 Status: Ordered Quantity: 90.0 Unit: tablet Repeat number: 2 diclofenac 1% topical gel 1 application, Topically, 4 times a day, 2g per application on elbow, wrist or hand; 4g per application on knee ankle or foot., # 100 Gm, 11 Refills, Maintenance, 05/24/24 2:01:00 PM EST, Gel, [email or web address] #[id number], Partial fill upon patient request if the [...] Refills, Maintenance, 05/24/24 1:32:00 PM EST, Capsule, [email or web address] #[id number], Partial fill upon patient request if the [...] Refills, Maintenance, 05/24/24 1:32:00 PM EST, Capsule, [email or web address] #[id number], Partial fill upon patient request if the [...] 3 Refills, Maintenance, 05/24/24 1:37:00 PM EST, [place], [email or web address] #[id number], Partial fill upon patient request if theprescription [...] Replace Required Details, Route to Pharmacy Electronically, [email or web address] #[id number], 160, cm, 07/25/24 10:15:00EDT, Height, 83.5, kg, 07/08/24 18:23:00 EDT, Dry Weight Start Date: 08/06/24 Status: Ordered Quantity: 270.0 Unit: capsule Repeat number: 1 hydrOXYzine hydrochloride 50 mg oral tablet 1 tablet = 50 mg, By Mouth, Daily at bedtime, PRN as needed, # 90 tablet, 3 Refills, Maintenance, 05/24/24 1:32:00 PM EST, Tablet, [email or web address] #[id number], Partial fill upon patient request if theprescription [...] 11 Refills, Maintenance, 03/12/24 1:07:00 PM EST, [email or web address] #[id number], Partial fill upon patient request if the prescription is for a schedule II opioid drug., 178, cm, 02/14/24 17:53:00 EDT, Height, 79.4, kg, 10/11/23 15:08:00 EDT, Dry Weight Start Date: 03/12/24 Status: Ordered Quantity: 90.0 Unit: each Repeat number: 12 lansoprazole 30 mg oral tablet, disintegrating 1 tablet = 30 mg, By Mouth, 2 times a day, # 60 tablet, 1 Refills, Maintenance, 09/16/24 5:21:00 PM EDT, DIS Tablet, [email or web address] #[email or web address], Partial fill upon patient request if the prescription is for a schedule II opioid drug., 160, cm, 09/16/24 16:33:00 EDT, Height, 73.5, kg, 09/05/24 7:22:00 EDT, Dry Weight Start Date: 09/16/24 Status: Ordered Quantity: 60.0 Unit: tablet Repeat number: 2 Lantus Solostar Pen 100 units/mL subcutaneous solution = 30 units, Subcutaneous Injection, Daily, increase dose, # 90 each, 3 Refills, Maintenance, 09/19/24 4:08:00 PM EDT, Solution, [email or web address] #[email or web address], egyptian label please. this is dose increase, 160, cm, 09/19/24 14:54:00 EDT, Height, 73.5, kg, 09/05/24 7:22:00 EDT, Dry Weight Start Date: 09/19/24 Stop Date: 09/14/25 Status: Ordered Quantity: 90.0 Unit: each Repeat number: 4 Lidoderm 5% film 2 patch, Topically, Daily, remove patches after 12 hours; 2 patches to pain areas; can cut patches in half; do not excede 2 patches., # 60 patch, 11 Refills, Maintenance, 05/24/24 2:01:00 PM EST, [email or web address] #[id number], Partial fill upon patient request if the [...] Refills, Maintenance, 05/24/24 1:33:00 PM EST, Tablet, [email or web address] #[id number], Partial fill upon patient request if the prescription is for a schedule II opioid drug., 160, cm, 05/18/24 6:48:00 EST, Height, 86, kg, 05/17/24 22:04:00 EST, Dry Weight Start Date: 05/24/24 Status: Ordered Quantity: 360.0 Unit: tablet Repeat number: 4 MiraLax oral powder for reconstitution = 17 Gm, By Mouth, Daily, PRN Constipation, dissolve in 4 to 8 oz of beverage, # 30 each, 0 Refills, Maintenance, 09/16/24 5:40:00 PM EDT, REC Powder, [email or web address] #[id number], Partial fill upon patient request if the prescription is for a schedule II opioid drug., 17 Gm By Mouth Daily,PRN:Constipation,Instr:dissolve in 4 to 8 oz of beverage, 160, cm, 09/16/24 16:33:00 EDT, Height, 73.5, kg, 12/23 7:22:00 EDT, Dry Weight Start Date: 09/16/24 Status: Ordered Quantity: 30.0 Unit: each Repeat number: 1 Mylanta Maximum Strength Salcedo oral suspension 5 mL, By Mouth, 4 times a day, PRN as needed for indigestion, # 200 mL, 2 Refills, Maintenance, 09/16/24 5:22:00 PM EDT, Suspension, [email or web address] #[id number], Partial fill upon patient request if the prescription is for a schedule II opioid drug., 5 mL By Mouth 4 times a day,PRN:as needed for indigestion, 160, cm, 09/16/24 16:33:00 EDT, Height, 73.5, kg, 09/05/24 7:22:00 EDT, Dry Weight Start Date: 09/16/24 Status: Ordered Quantity: 200.0 Unit: mL Repeat number: 3 ondansetron 4 mg oral tablet, disintegrating 1 tablet = 4 mg, By Mouth, 3 times a day, PRN Nausea & Vomiting, # 30 tablet, 1 Refills, Maintenance, 05/09/24 3:36:00 PM EST, Tablet, [email or web address] #[id number], Partial fill upon patient requestif the prescription is for a schedule II opioid drug., 160, cm, 05/08/24 13:51:00 EST, Height, 86, kg, 04/26/24 0:23:00 EST, Dry Weight Start Date: 05/09/24 Status: Ordered Quantity: 30.0 Unit: tablet Repeat number: 2 ondansetron 4 mg oral tablet, disintegrating 1 tablet = 4 mg, By Mouth, 3 times a day, PRN Nausea & Vomiting, # 90 tablet, 4 Refills, Maintenance, 09/19/24 4:12:00 PM EDT, Tablet, [email or web address] #[id number], Partial fill upon patient request if the prescription is for a schedule II opioid drug., 160, cm, 09/19/24 14:54:00 EDT, Height, 73.5, kg, 09/05/24 7:22:00 EDT, Dry Weight Start Date: 09/19/24 Status: Ordered Quantity: 90.0 Unit: tablet Repeat number: 5 oxybutynin 15 mg/24 hr oral tablet, extended release 1 tablet = 15 mg, By Mouth, Daily, # 90 tablet, 3 Refills, Maintenance, 05/24/24 2:08:00 PM EST, ER Tablet, [email or web address] #[id number], Partial fill upon patient request if the prescription is for a schedule II opioid drug., 160, cm, 05/24/24 13:35:00 EST, Height, 86, kg, 05/17/24 22:04:00 EST, DryWeight Start Date: 05/24/24 Status: Ordered Quantity: 90.0 Unit: tablet Repeat number: 4 Ozempic (1 mg dose) 4 mg/3 mL subcutaneous solution = 1 mg, Subcutaneous Injection, Every week, # 3 mL, 4 Refills, Maintenance, 09/19/24 11:36:00 PM EDT, Solution, [email or web address] #[id number], Partial fill upon patient request if the prescription is for a schedule II opioid drug., 160, cm, 09/19/24 14:54:00 EDT, Height, 73.5, kg, 09/05/24 7:22:00 EDT, Dry Weight Start Date: 09/19/24 Status: Ordered Quantity: 3.0 Unit: mL Repeat number: 5 pantoprazole 40 mg oral delayed release tablet = 40 mg, By Mouth, 2 times a day, increase dose, # 180 tablet, 3 Refills, Maintenance, 09/19/24 4:10:00 PM EDT, EC Tablet, 160, cm, 09/19/24 14:54:00 EDT, Height, 73.5, kg, 09/05/24 7:22:00 EDT, Dry Weight Start Date: 09/19/24 Stop Date: 09/14/25 Status: Ordered Quantity: 180.0 Unit: tablet Repeat number: 4 pravastatin 20 mg oral tablet 20 mg, 1, tablet, By Mouth, Daily, # 90 tablet, Refills 3, Tot. Refills 3, Maintenance, 05/24/24 2:08:00 PM EST, Route to Pharmacy Electronically, [email or web address] #[id number], Partial fill upon patient request if the [...] 10:40:00 AM EST, Route to Pharmacy Electronically, [email or web address] #[id number], Partial fill upon patient request if the [...] PM EST, Aerosol, Route to Pharmacy Electronically, [id number], [email or web address] #[id number], d/c flovent, 160, cm, 05/24/24 13:35:00 EST, Height, 86, kg, 05/17/24 22:04:00EST, Dry Weight Start Date: 05/24/24 Status: Ordered Quantity: 3.0 Unit: each Repeat number: 4 traZODone 50 mg oral tablet 100 mg, 2, tablet, By Mouth, Daily at bedtime, PRN, # 180 tablet, Refills 3, Tot. Refills 3, Maintenance, Insomnia, 05/24/24 1:33:00 PM EST, Route to Pharmacy Electronically, [email or web address] #[id number], Partial fill upon patient request if the [...] Refills, Maintenance, 05/24/24 1:32:00 PM EST, Inhaler, [email or web address] #[email or web address], Partial fill upon patient request if the [...] 1:33:00 PM EST, Route to Pharmacy Electronically, [email or web address] #[id number], Partial fill upon patient request if the [...] Confirmed Active Asthma - PFTs mild obstructive 2019 2, 3 Confirmed Active Breast lumpectomy 4 Confirmed 07/08/09 Active Chest pain Confirmed Active CKD (chronic kidney disease) Confirmed Active CKD (chronic kidney disease) stage 2, GFR 60-89 ml/min Confirmed Active Diabetes mellitus Confirmed Active Diastolic dysfunction Confirmed Active Abnormal echocardiogram - HEpEF Confirmed Active HIV disease Confirmed Active Hyperlipidemia Confirmed Active HTN (hypertension) Confirmed Active Imbalance Confirmed Active Insomnia Confirmed Active Left knee pain Confirmed Active LBP - Low back pain Confirmed Active mammogram 5 Confirmed 06/04/09 Active Anxiety and depression Confirmed Active Multinodular goiter Confirmed Active Nausea and vomiting Confirmed Active 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 Followed by Allergy-Dr Almonte 2PFTs obstructive 03/2019 3difficulty with showering, housecleaning, grocery shopping, laundry 4Rt breast. [facility] 5done at [facility].-- pt needs additional imaging evalution 6EMB and Hysteroscopy by Dr Seo 06/10. Evidence of low grade dysplasia. Social History Social History Type Response Smoking Status Never smoker entered on: 07/25/13 Sex Sex Representation Female (finding) Patient Care team information Care Team Personnel Name: Edyta Brower RN Position: [facility] RN Member Role: Primary Care Nurse Name: Tayla Jerome RN Position: S RN Member Role: Primary Care Nurse Name: Evelyn Ag Position: S RN Member Role: Primary Care Nurse Name: Sirisha Ortez RN Position: [facility] RN Member Role: Primary Care Nurse Name: Perla Thomason RN Position: S RN Member Role: Primary Care Nurse Name: Delmy Greer RN Position: [facility] RN Member Role: Primary Care Nurse Name: Emily Wolfe RN Position: [facility] RN Member Role: Primary Care Nurse Name: Teresita Calderón MD Position: [facility] Physician - Primary Care Member Role: PCP Address: [address] [place] [address]- Telecom: Name: Delilah Romero RN Position: [facility] RN Member Role: Primary Care Nurse Name: Lacie Sepulveda NP Position: [facility] PCO Associate Professional Member Role: Primary Care Nurse Address: [address] [place] [address]- [place] Telecom: Name: Kelsey Osullivan RN Position: [facility] RN Member Role: Primary Care Nurse Name: Edita Gregorio RN Position: [facility] RN Member Role: Primary Care Nurse Name: Franki Newberry RN Position: [facility] RN Member Role: Primary Care Nurse Name: Korin Hickman LPN Position: [facility] RN Member Role: Primary Care Nurse Name: Ashley Guillaume RN Position: [facility] RN Member Role: Primary Care Nurse Care Team Related Persons Name: SELIN REILLY Name: ARTURO HOFFMAN Name: ANNA WRIGHT Insurance Providers Guarantor name: ADITYA ANAND Health Plan Information #: 1 Payer: [facility] Member Number: [id number] Policy Number: NA Group Number: [id number] Health Plan Information #: 2 Payer: [facility] Member Number: [id number] Policy Number: NA Group Number: [id number]
== END 2024-09-24 11:20 | disposition home or self-care (01) ==
LOC: HO.HBS 10:48
PROVIDERS: PCP Internal Medicine; Visit Provider Physician Assistant Surgical
DX: E66.3 Overweight (principal); Z68.28 Body mass index [BMI] 28.0-28.9, adult; Z98.84 Bariatric surgery status; L98.7 Excessive and redundant skin and subcutaneous tissue
CPT/HCPCS: 99213; G2211

== ENCOUNTER → 2024-09-24 10:48 | Outpatient (BNVA) | payer OTHER, SELFPAY | PROVIDERS: PCP Internal Medicine; Visit Provider Physician Assistant Surgical | DX: Z48.815 Encounter for surgical aftercare following surgery on the digestive system (principal); Z98.84 Bariatric surgery status | CPT/HCPCS: 99212 ==

== ENCOUNTER 2024-10-28 11:17 | Outpatient (AMB) | payer OTHER, SELFPAY ==
--- NOTE | 2024-10-28 11:20 | MHC.OFFVISWM ---
VS Expanded 10/28/24 11:31 BP 121/66 Blood Pressure Location Rt brachial Blood Pressure Position Sitting Pulse 111 H Pulse Source Pulse Oximeter Temp 97.6 F Temperature Source Temporal Artery Scan Pulse Oximetry 98 Oxygen Delivery Method Room Air Height 5 ft 3 in Weight 161 lb BMI 28.5 Body Fat % 40.1 Body Fat Mass 64.6 Fat Free Mass 96.4 Visceral Fat Rating 10.0 Body Water % 42.2 Body Water Mass 68.0 Muscle Mass/Score 91.4 Basal Metabolic Rate/Score 1,330 Intake Visit Reasons: (OV) PO LSG 08/01/23 Allergies Sulfa (Sulfonamide Antibiotics) Allergy (Mild, Verified 10/28/24 11:27) Hives metoprolol Allergy (Verified 10/28/24 11:27) Rash HPI Comments Details: This?a?64?yo female who is s/p LSG without hiatal hernia repair on?08/01/2023. Presents for 1 year 3 month post op visit. Weight today is 161 pounds, with a BMI of 28.5. There has been a 101.4 pound weight loss,(initial weight 262.4 pounds) since starting the program on 08/26/2022 reflecting a 38.4% total body weight loss and a weight loss of 75 pounds since surgery (operative weight 236 pounds) reflecting a 31.4% TBWL since surgery. No complaints of nausea, emesis, abdominal pain or reflux. Reports infrequent but normal bowel movements every 1-2 days and uses stool softeners regularly. Six-month labs were ordered in January. She did not get them done. Patient was admitted to [facility], 09/05/2024 through 09/07/2024. Diagnosis was nausea vomiting and diarrhea. This was noted to be after exposure of a gastroenteritis from her grandchildren. Symptoms resolved, diet was advanced and she was discharged home. She was also found to have pyuria and given empiric treatment with IV Rocephin. No further antibiotics were needed after completing 3 days of IV antibiotics. CT scan showed no evidence of bowel obstruction however small type 3 paraesophageal hernia. She states that she has no further nausea and vomiting however does have discomfort in her upper chest/upper abdomen with eating solid foods and sometimes liquids. Since being seen approximately 1 month ago, she has slowed down her eating and drinking. She states that she is taking small bites of food and drinking slowly. She does report a feeling of food getting ?stuck? a proximally 3 times per week. This causes discomfort in the chest area. It does resolve spontaneously but causes significant distress. She states that this could happen with something such as white meat chicken or salad. She does not have this problem if she were to have something like fish. Patient has excessive skin, especially of the arms given her 101 lb weight loss. The excess skin of her arms impacts her activities of daily living causing pain when she would wash her hair or brush her hair. Additionally when trying to put on a shirt over her head lifting her arms over her head due to the significant redundant skin of her arms causes pain. She has difficulty with clothing fitting appropriately given the excessive skin of her arms. She has not had any rashes to the axilla, but rather the impact on her activities of daily living is of greatest concern. Taking bariatric MVI. Present meal plan includes: Using Orgain and 8 oz unsweetened almond milk 7-9 shake, 1 scoop ( drinking over 1 hour instead of 2) 10-12 shake, 1 scoop 1-3 shake, 1 scoop 4-6 meal with 4 forks protein and 4 forks cooked vegetables Drinking 64 oz water Exercise routine includes: stationary bike, 5 x week, twice per day, unsure of calories burned as grandkids are messing with the buttons [facility] Medical History GERD (gastroesophageal reflux disease) Stress incontinence Insulin dependent type 2 diabetes mellitus Neuropathy Morbid obesity History of transfusion of packed red blood cells Arthritis Concussion Sleep apnea Asthma SOB (shortness of breath) Surgical History S/P laparoscopic sleeve gastrectomy History of lumpectomy of right breast Hx of tracheostomy Hx of cataract surgery Hx of tonsillectomy Hx of appendectomy Family History Mother Diabetes Father No problems noted. Brother No problems noted. Brother No problems noted. Sister Thyroid disease Sister Heart disease Sister No problems noted. Sister No problems noted. Sister No problems noted. Daughter No problems noted. Daughter No problems noted. Daughter No problems noted. Son Thyroid disease Son No problems noted. Son No problems noted. 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) Alcohol intake: never Patient Tobacco Use Status: Never used Tobacco service: No Physical Exam Const General: healthy appearing and no acute distress Resp Effort & Inspection: normal respiratory effort Auscultation: clear to auscultation bilaterally Cardio Rate: regular rate Rhythm: regular rhythm GI Auscultation: normal bowel sounds Extrem General: Yes normal to inspection Assessment & Plan Assessment & Plan (1) S/P laparoscopic sleeve gastrectomy: Code(s): Z98.84 - Bariatric surgery status Category: Surgical Plan: Using Orgain and 8 oz unsweetened almond milk 7-9 shake, 2 scoops (drinking over 2 hrs at 1 oz per 15 min in 4 sips per oz) 10-12 shake, 1 scoop 1-3 shake, 1 scoop 4-6 meal with 4 forks protein and 4 forks cooked vegetables We will have her drink from 1 oz cups as listed above as it likely is the fact that she is taking too much too quickly. She also has begun drinking from a straw which she was advised not to do. Should she have resolution of her issues then no further workup will be needed. However if she has continued feelings of food getting stuck, we will have her undergo EGD. Have her return to the office in approximately 3 weeks. Encouraged to text with any change in symptoms.
[2024-10-28 11:31] VITALS: BP 121/66; PULSE 111; TEMP 36.4; O2SAT 98; BMI 28.5
--- OUTSIDE RECORDS SUMMARY | 2024-10-28 12:10 | XMS_ITS | Clinical Summary ---
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 Active metFORMIN (GLUCOPHAGE) 500 mg tablet Take 2 tablets (1,000 mg total) by mouth 2 (two) times a day with meals. Active dextrose (glucose) 2 gram tablet,chewab le Chew 4 tablets 1 (one) time each day if needed. Take 4 Tablets by mouth as needed for Other (low blood sugar). 12/13/19 24 Active multivitamin (MULTIPLE VITAMINS ORAL) Take by mouth. Activ e blood-glucose meter,continu ous (Dexcom G7 Needle Board Repairer) misc 1 Device by Not Applicable route 1 (one) time. 08/03/19 24 Active glucagon (Baqsimi) 3 mg/actuation nasal spray Administer 3 mg into one nostril if needed. 1 Dose by Nasal route as needed for Other (hypoglycemia). 03/29/20 23 Active fexofenadine (IRA) 60 mg tablet Take [...] Active flunisolide (NASALIDE) 25 mcg (0.025 %) spray,non-aer osol Administer into affected nostril(s). Active Biktarvy 50-200-25 [...] mg total) by mouth at bedtime. Active valsartan-hyd roCHLOROthiaz favian (DIOVAN-HCT) 160-12.5 mg per tablet Take 1 [...] Other route 4 (four) times a day. 03/14/20 24 Active Dexcom G7 Sensor device 1 EA by Other route See administration instructions. Change sensor every 10 days 3 each 03/26/20 24 Active insulin lispro (HumaLOG KwikPen) 100 unit/mL injection pen INJECT 2 TO 6 UNITS DIRECTED PER SLDIDING SCALE THREE TIMES DAILY WITH MEALS 15 mL 5 10/24/19 25 Active insulin lispro (HumaLOG KwikPen) 100 unit/mL injection pen Inject 1-4 Units under the skin 3 (three) times a day before meals. Inject 1-4 Units into the skin 3 times daily (with meals). Use three times a day before meals: 200-250: 1 units, 251-300: 2 units, 301-350: 3 units, >351: 4 units. 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
== END 2024-10-28 11:51 | disposition home or self-care (01) ==
LOC: HO.HBS 11:17
PROVIDERS: PCP Internal Medicine; Visit Provider Physician Assistant Surgical
DX: E66.9 Obesity, unspecified (principal); Z68.28 Body mass index [BMI] 28.0-28.9, adult; Z90.3 Acquired absence of stomach [part of]; Z98.84 Bariatric surgery status
CPT/HCPCS: 99213

== ENCOUNTER → 2024-10-28 11:17 | Outpatient (BNVA) | payer OTHER, SELFPAY | PROVIDERS: PCP Internal Medicine; Visit Provider Physician Assistant Surgical | DX: Z98.84 Bariatric surgery status (principal) | CPT/HCPCS: 99212 ==